=== PATIENT | female | born 1930 | race Caucasian/White ===

== ENCOUNTER 2017-03-04 11:25 | Emergency (ER) | payer MEDICARE ==
[~2017-03-04] VITALS: Ht 154.9 cm; Wt 78.9 kg
[~2017-03-04 11:25] MED LIST: ATOR10TA PO; COZA50TA PO; FURO20TA PO; LEVO50TA51 PO; LORA1TAB PO; METR0.7533 TOP; NOVOLOGSS SQ; POTA-243 PO; PROM2SUP RECTAL; PROT40TA PO; TIOT18I INH
[2017-03-04 11:30] VITALS: BP 194/77; PULSE 82; RESP 18; TEMP 98.5; O2SAT 96
[2017-03-04] MEDS ORDERED: LORA1TAB12 PO (11:51)
[2017-03-04] MEDS ORDERED: FURO40TA PO (11:51)
[2017-03-04] MEDS ORDERED: LOSA50TA PO (11:51)
[2017-03-04] MEDS ORDERED: POTA8CAP PO (11:51)
[2017-03-04] MEDS ORDERED: NOVOLOGP2 SQ (11:51)
[2017-03-04] MEDS ORDERED: LEVO75TA3 PO (11:51)
--- NOTE | 2017-03-04 11:52 | PD ---
HPI Chief Complaint: GI Complaint Time Seen by Provider: 11:37 Travel History International Travel<30 days: No Contact w/Intl Traveler<30days: No Traveled to known affect area: No History of Present Illness HPI The patient was seen and examined in the presence of the nurse. This patient complains of rectal bleeding. She has had intermittent and periodic bright red rectal bleeding for the last 1-2 months. She had GI follow-up and is scheduled for colonoscopy at the end of the month. Today she noticed some bright red blood. It was a small amount. She does have some degree of generalized weakness and reports history of anemia. Severity is moderate. No alleviating factors. No exacerbating factors. No vomiting or fever. She has chronic pain from arthritis and has a morphine pump. PFSH Past Medical History Arthritis: Yes Anxiety: Yes Cancer: Yes (SKIN CANCER BOTH EYES, LEFT KIDNEY) Cardiovascular Problems: Yes High Cholesterol: Yes Congestive Heart Failure: No Diabetes: Yes Diminished Hearing: No Gastrointestinal Disorders: Yes (REFLUX) GERD: Yes Glaucoma: No Genitourinary: Yes Hepatitis: No Hiatal Hernia: No Hypertension: Yes Immune Disorder: No Musculoskeletal: Yes (NECK, ARTHRITIS) Neurologic: Yes Psychiatric: Yes (MOD ANXIETY) Respiratory: Yes (SOB WITH EXERTION, COUGH (CLEARS THROAT)) Pneumonia: Yes Thyroid Disease: Yes (HYPO) ?: Not Menopausal: Yes Past Surgical History Abdominal Surgery: Yes (APPENDECTOMY, PAIN PUMP PLACEMENT 2006) Appendectomy: Yes Body Medical Devices: PAIN PUMP, TITANIUM IN NECK Eye Surgery: Yes (BILAT CATARACT SX) Gynecologic Surgery: Yes (HYSTERECTOMY) Hysterectomy: Yes Pacemaker: No Social History Alcohol Use: No Tobacco Use: No (QUIT SEP 16 1988) Substance Use: No Allergies-Medications (Allergen,Severity, Reaction): Coded Allergies: morphine (Verified Adverse Reaction, Mild, NAUSEA/VOMITING, 03/04/17) aspirin (Verified Adverse Reaction, Unknown, NV, 03/04/17) cephalexin (Verified Adverse Reaction, Unknown, NV, 03/04/17) ibuprofen (Verified Adverse Reaction, Unknown, NV, 03/04/17) Uncoded Allergies: OMNICEF (Allergy, Intermediate, DIARRHEA, 05/23/08) Reported Meds & Prescriptions Reported Meds & Active Scripts Active Reported Potassium Chloride ER (Potassium Chloride) 8 Meq Cap 8 Meq PO BID Losartan (Losartan Potassium) 50 Mg Tab 50 Mg PO DAILY Lorazepam 1 Mg Tab 1 Mg PO BID PRN Levothyroxine (Levothyroxine Sodium) 75 Mcg Tab 75 Mcg PO DAILY Novolog Inj (Insulin Aspart) 1,000 Unit/10 Ml Vial 0 SQ DIRECTED Sliding Scale as directed. Furosemide 40 Mg Tab 40 Mg PO DAILY Review of Systems General / Constitutional: No: Fever Eyes: No: Visual changes HENT: No: Headaches Cardiovascular: No: Chest Pain or Discomfort Respiratory: No: Shortness of Breath Gastrointestinal: Positive: Hematochezia Genitourinary: No: Dysuria Musculoskeletal: Positive: Pain Skin: No Rash Neurologic: No: Weakness Psychiatric: No: Depression Endocrine: No: Polydipsia Hematologic/Lymphatic: No: Easy Bruising Physical Exam Narrative GENERAL: Well-nourished, well-developed patient in no apparent distress. SKIN: Focused skin assessment reveals no rash and nodules. Skin is Warm and dry. HEAD: Atraumatic. Normocephalic. EYES: Pupils equal and round. No scleral icterus. No injection or drainage. ENT: No nasal bleeding or discharge. Mucous membranes pink and moist. NECK: Trachea midline. No JVD. CARDIOVASCULAR: Regular rate and rhythm. No murmur appreciated. RESPIRATORY: No accessory muscle use. Clear to auscultation. Breath sounds equal bilaterally. GASTROINTESTINAL: Abdomen soft, non-tender, nondistended. Hepatic and splenic margins not palpable. MUSCULOSKELETAL: No obvious deformities. No clubbing. No cyanosis. No edema. NEUROLOGICAL: Awake and alert. No obvious cranial nerve deficits. Motor grossly within normal limits. Normal speech. PSYCHIATRIC: Appropriate mood and affect; insight and judgment normal. Rectal: Some heaped up tissue at the anus but no obvious external hemorrhoid or fissure Data Data Last Documented VS Vital Signs Date Time Temp Pulse Resp B/P (MAP) Pulse Ox O2 Delivery O2 Flow Rate FiO2 03/04/17 12:45 98.1 61 18 168/59 (95) 97 Room Air Orders Orders Basic Metabolic Panel (Bmp) (03/04/17 11:47) Complete Blood Count With Diff (03/04/17 11:47) Prothrombin Time / Inr (Pt) (03/04/17 11:47) Act Partial Throm Time (Ptt) (03/04/17 11:47) Ecg Monitoring (03/04/17 11:47) Iv Access Insert/Monitor (03/04/17 11:47) Oximetry (03/04/17 11:47) Sodium Chloride 0.9% Flush (Ns Flush) (03/04/17 12:00) Labs Laboratory Tests Test 03/04/17 12:00 White Blood Count 5.2 TH/MM3 Red Blood Count 4.10 MIL/MM3 Hemoglobin 11.5 GM/DL Hematocrit 34.4 % Mean Corpuscular Volume 83.8 FL Mean Corpuscular Hemoglobin 28.1 PG Mean Corpuscular Hemoglobin Concent 33.5 % Red Cell Distribution Width 14.4 % Platelet Count 137 TH/MM3 Mean Platelet Volume 8.6 FL Neutrophils (%) (Auto) 72.9 % Lymphocytes (%) (Auto) 16.6 % Monocytes (%) (Auto) 6.1 % Eosinophils (%) (Auto) 2.9 % Basophils (%) (Auto) 1.5 % Neutrophils # (Auto) 3.7 TH/MM3 Lymphocytes # (Auto) 0.9 TH/MM3 Monocytes # (Auto) 0.3 TH/MM3 Eosinophils # (Auto) 0.2 TH/MM3 Basophils # (Auto) 0.1 TH/MM3 CBC Comment DIFF FINAL Differential Comment Prothrombin Time 11.0 SEC Prothromb Time International Ratio 1.0 RATIO Activated Partial Thromboplast Time 27.3 SEC Blood Urea Nitrogen 20 MG/DL Creatinine 1.10 MG/DL Random Glucose 266 MG/DL Calcium Level 8.9 MG/DL Sodium Level 132 MEQ/L Potassium Level 4.5 MEQ/L Chloride Level 99 MEQ/L Carbon Dioxide Level 25.9 MEQ/L Anion Gap 7 MEQ/L Estimat Glomerular Filtration Rate 47 ML/MIN [facility] Medical Decision Making Medical Screen Exam Complete: Yes Emergency Medical Condition: Yes Medical Record Reviewed: Yes Differential Diagnosis Diverticulosis, AV malformation, polyp Narrative Course I have reviewed the patient's electronic medical record. Her hemoglobin was 9.9 drawn 6 months ago IV placed CBC shows hemoglobin of 10.5, higher than prior Metabolic profile is noted, hyperglycemic Coagulation studies are normal Abdomen is soft and benign and nontender Patient should call her GI physician to report further bleeding but she stable for outpatient follow-up. Diagnosis Primary Impression: Rectal bleeding Additional Instructions: The patient was advised to follow up with their GI physician and return if they worsen. Med/Other Pt SpecificInfo: Other Disposition: 01 DISCHARGE HOME Condition: Stable Kocisko,Boris J. MD Mar 04, 2017 11:52
[2017-03-04] MEDS ORDERED: SODIUM CHLORIDE 0.9% FLUSH 10 ML FLUSH IVF PRN (12:00)
[2017-03-04 12:19] LABS: AUTOMATED NEUTROPHIL # 3.7 TH/MM3 (1.8-7.7); BASOPHIL # 0.1 TH/MM3 (0-0.2); BASOPHIL % 1.5 % (0.0-2.0); EOSINOPHIL # 0.2 TH/MM3 (0-0.4); EOSINOPHIL % 2.9 % (0.0-4.0); HEMATOCRIT 34.4 % (35.0-46.0); HEMO FLAGS DIFF FINAL; LYMPH % 16.6 % (9.0-44.0); LYMPHOCYTE # 0.9 TH/MM3 (1.0-4.8); MEAN CELL VOLUME 83.8 FL (80.0-100.0); MEAN CORPUSCULAR HEMOGLOBIN 28.1 PG (27.0-34.0); MEAN CORPUSCULAR HGB CONC 33.5 % (32.0-36.0); MONO % 6.1 % (0.0-8.0); NEUT % 72.9 % (16.0-70.0); PLATELET COUNT 137 TH/MM3 (150-450); RED CELL DISTRIBUTION WIDTH 14.4 % (11.6-17.2); WHITE BLOOD COUNT 5.2 TH/MM3 (4.0-11.0)
[2017-03-04 12:29] LABS: POTASSIUM 4.5 MEQ/L (3.5-5.1)
[2017-03-04 12:32] LABS: BICARBONATE 25.9 MEQ/L (21.0-32.0)
[2017-03-04 12:33] LABS: APTT (PATIENT) 27.3 SEC (24.3-30.1)
[2017-03-04 12:45] VITALS: BP 168/59; PULSE 61; RESP 18; TEMP 98.1; O2SAT 97
== END 2017-03-04 13:22 | disposition home or self-care (01) ==
LOC: PHED 11:25
DX: K62.5 Hemorrhage of anus and rectum (principal); R53.1 Weakness; E11.9 Type 2 diabetes mellitus without complications; I10 Essential (primary) hypertension; E07.9 Disorder of thyroid, unspecified; E78.00 Pure hypercholesterolemia, unspecified; Z79.4 Long term (current) use of insulin; Z86.2 Personal history of diseases of the blood and blood-forming organs and certain disorders involving the immune mechanism; Z87.39 Personal history of other diseases of the musculoskeletal system and connective tissue; Z86.59 Personal history of other mental and behavioral disorders; Z86.79 Personal history of other diseases of the circulatory system; Z87.19 Personal history of other diseases of the digestive system; Z87.448 Personal history of other diseases of urinary system; Z86.69 Personal history of other diseases of the nervous system and sense organs; Z87.09 Personal history of other diseases of the respiratory system
CPT/HCPCS: 80048; 85025; 85610; 85730; 99283

== ENCOUNTER 2017-06-11 07:51 | Observation (INO) | payer MEDICARE ==
[~2017-06-11] VITALS: Ht 154.9 cm; Wt 81.1 kg
[~2017-06-11 07:51] MED LIST changes: -ATOR10TA PO; -COZA50TA PO; -FURO20TA PO; +FURO40TA PO; -LEVO50TA51 PO; +LEVO75TA3 PO; -LORA1TAB PO; +LORA1TAB12 PO; +LOSA50TA PO; -METR0.7533 TOP; +NOVOLOGP2 SQ; -NOVOLOGSS SQ; -POTA-243 PO; +POTA8CAP PO; -PROM2SUP RECTAL; -PROT40TA PO; -TIOT18I INH
[2017-06-11 08:13] VITALS: BP 187/70; PULSE 86; RESP 16; TEMP 98.8; O2SAT 96
--- NOTE | 2017-06-11 08:14 | PD ---
HPI Chief Complaint: cough, generalized weakness Time Seen by Provider: 08:10 Travel History International Travel<30 days: No Contact w/Intl Traveler<30days: No Traveled to known affect area: No History of Present Illness HPI 87-year-old female with history of diabetes, chronic pain with a pain pump, anemia, here for evaluation of possible pneumonia, cough, generalized weakness. Symptoms have been going on for the last 4 days. Cough is productive, however the patient has been swallowing her sputum and does not know what it looks like. She has been having chills and subjective fevers. She also has an intermittent tightness in her chest which is substernal. She denies history of significant cardiac disease. No history of DVT or PE. PFSH Past Medical History Arthritis: Yes Anxiety: Yes Cancer: Yes (SKIN CANCER BOTH EYES, LEFT KIDNEY) Cardiovascular Problems: Yes High Cholesterol: Yes Congestive Heart Failure: No Diabetes: Yes Diminished Hearing: No Gastrointestinal Disorders: Yes (REFLUX) GERD: Yes Glaucoma: No Genitourinary: Yes Headaches: Yes (OCC) Hepatitis: No Hiatal Hernia: No Hypertension: Yes Immune Disorder: No Implanted Vascular Access Dvce: Yes Musculoskeletal: Yes (NECK, ARTHRITIS) Neurologic: Yes Psychiatric: Yes (MOD ANXIETY) Respiratory: Yes (SOB WITH EXERTION, COUGH (CLEARS THROAT)) Pneumonia: Yes Thyroid Disease: Yes (HYPO) Menopausal: Yes Past Surgical History Abdominal Surgery: Yes (APPENDECTOMY, PAIN PUMP PLACEMENT 2006) Appendectomy: Yes Body Medical Devices: PAIN PUMP, TITANIUM IN NECK Eye Surgery: Yes (BILAT CATARACT SX) Gynecologic Surgery: Yes (HYSTERECTOMY) Hysterectomy: Yes Pacemaker: No Other Surgery: Yes Social History Alcohol Use: No Tobacco Use: No (QUIT SEP 16 1988) Substance Use: No Allergies-Medications (Allergen,Severity, Reaction): Coded Allergies: morphine (Verified Adverse Reaction, Mild, NAUSEA/VOMITING, 06/11/17) aspirin (Verified Adverse Reaction, Unknown, NV, 06/11/17) cephalexin (Verified Adverse Reaction, Unknown, NV, 06/11/17) ibuprofen (Verified Adverse Reaction, Unknown, NV, 06/11/17) Uncoded Allergies: OMNICEF (Allergy, Intermediate, DIARRHEA, 05/23/08) Reported Meds & Prescriptions Reported Meds & Active Scripts Active Reported Tresiba Flextouch Pen Inj (Insulin Degludec Inj) 300 unit/3 ML Pen 1 Units SQ TID Stool Softener (Docusate Sodium) 100 Mg Cap Ferosul (Ferrous Sulfate) 325 Mg (65 Mg Iron) Tablet Potassium Chloride ER (Potassium Chloride) 8 Meq Cap 8 Meq PO BID Losartan (Losartan Potassium) 50 Mg Tab 50 Mg PO DAILY Lorazepam 1 Mg Tab 1 Mg PO QID PRN Levothyroxine (Levothyroxine Sodium) 75 Mcg Tab 50 Mcg PO DAILY Novolog Inj (Insulin Aspart) 1,000 Unit/10 Ml Vial 0 SQ DIRECTED Sliding Scale as directed. Furosemide 40 Mg Tab 40 Mg PO DAILY Review of Systems Except as stated in HPI: all other systems reviewed are Neg Physical Exam Narrative GENERAL: Well-developed, well-nourished, comfortable, no apparent distress. SKIN: Focused skin assessment warm/dry. HEAD: Atraumatic. Normocephalic. EYES: Pupils equal and round. No scleral icterus. No injection or drainage. ENT: Mucous membranes pink and moist. NECK: Trachea midline. No JVD. CARDIOVASCULAR: Regular rate and rhythm. Holosystolic murmur. RESPIRATORY: No accessory muscle use. Clear to auscultation. Breath sounds equal bilaterally. GASTROINTESTINAL: Abdomen soft, non-tender, nondistended. MUSCULOSKELETAL: No obvious deformities. No clubbing. No cyanosis. Moderate bilateral lower chin edema from foot to knee. NEUROLOGICAL: Awake and alert. No obvious cranial nerve deficits. Motor grossly within normal limits. Normal speech. PSYCHIATRIC: Appropriate mood and affect; insight and judgment normal. Data Data Last Documented VS Vital Signs Date Time Temp Pulse Resp B/P (MAP) Pulse Ox O2 Delivery O2 Flow Rate FiO2 06/11/17 08:15 96 Room Air 06/11/17 08:13 98.8 86 16 187/70 (109) Orders Orders Complete Blood Count With Diff (06/11/17 08:10) Comprehensive Metabolic Panel (06/11/17 08:10) B-Type Natriuretic Peptide (06/11/17 08:10) Act Partial Throm Time (Ptt) (06/11/17 08:10) Prothrombin Time / Inr (Pt) (06/11/17 08:10) Ckmb (Isoenzyme) Profile (06/11/17 08:10) Troponin I (06/11/17 08:10) Urinalysis - C+S If Indicated (06/11/17 08:10) Influenzae A/B Antigen (06/11/17 08:10) Blood Culture (06/11/17 08:10) Iv Access Insert/Monitor (06/11/17 08:10) Electrocardiogram (06/11/17 08:10) Ecg Monitoring (06/11/17 08:10) Oximetry (06/11/17 08:10) Chest, Single Ap (06/11/17 08:10) Sodium Chloride 0.9% Flush (Ns Flush) (06/11/17 08:15) Admit Order (Ed Use Only) (06/11/17 09:27) Labs Laboratory Tests Test 06/11/17 08:38 White Blood Count 7.3 TH/MM3 Red Blood Count 3.39 MIL/MM3 Hemoglobin 8.5 GM/DL Hematocrit 27.9 % Mean Corpuscular Volume 82.2 FL Mean Corpuscular Hemoglobin 25.1 PG Mean Corpuscular Hemoglobin Concent 30.5 % Red Cell Distribution Width 16.5 % Platelet Count 172 TH/MM3 Mean Platelet Volume 8.1 FL Neutrophils (%) (Auto) 70.2 % Lymphocytes (%) (Auto) 15.9 % Monocytes (%) (Auto) 8.4 % Eosinophils (%) (Auto) 4.4 % Basophils (%) (Auto) 1.1 % Neutrophils # (Auto) 5.1 TH/MM3 Lymphocytes # (Auto) 1.2 TH/MM3 Monocytes # (Auto) 0.6 TH/MM3 Eosinophils # (Auto) 0.3 TH/MM3 Basophils # (Auto) 0.1 TH/MM3 CBC Comment DIFF FINAL Differential Comment Prothrombin Time 10.3 SEC Prothromb Time International Ratio 1.0 RATIO Activated Partial Thromboplast Time 26.0 SEC Blood Urea Nitrogen 22 MG/DL Creatinine 1.10 MG/DL Random Glucose 277 MG/DL Total Protein 7.1 GM/DL Albumin 2.9 GM/DL Calcium Level 8.7 MG/DL Alkaline Phosphatase 117 U/L Aspartate Amino Transf (AST/SGOT) 20 U/L Alanine Aminotransferase (ALT/SGPT) 17 U/L Total Bilirubin 0.2 MG/DL Sodium Level 132 MEQ/L Potassium Level 4.2 MEQ/L Chloride Level 98 MEQ/L Carbon Dioxide Level 24.1 MEQ/L Anion Gap 10 MEQ/L Estimat Glomerular Filtration Rate 47 ML/MIN Total Creatine Kinase 65 U/L Troponin I LESS THAN 0.02 NG/ML B-Type Natriuretic Peptide 154 PG/ML MDM Medical Decision Making Medical Screen Exam Complete: Yes Emergency Medical Condition: Yes Medical Record Reviewed: Yes Interpretation(s) EKG: Sinus, rate 82, normal axis, normal intervals, no acute ischemic abnormality. Differential Diagnosis Pneumonia, influenza, anemia, metabolic abnormality, UTI, PE, ACS Narrative Course Initial vital signs show heart rate 86, blood pressure 187/70, pulse ox 96% on room air, oral temp of 98.8F. CBC is remarkable for hemoglobin 8.5, hematocrit 27.9. The patient has history of anemia, however this is worse than her baseline. CMP is remarkable for random glucose 277, otherwise unremarkable. Cardiac enzymes are negative. Chest x-ray: Chronic interstitial prominence. No acute abnormality or significant interval change. Stool is heme positive and black. The patient is on iron. She reports recent EGD and colonoscopy by Dr. Larios and was told that she has gastritis and gastric ulcer. Given her anemia with symptoms of weakness as well as heme positive stool, the patient will be admitted for serial H&H and further workup and evaluation. Case discussed with [facility] hospitalist Dr. Andrade who will admit the patient to his service. HemaPrompt Point of Care Internal Pos. & Neg. Controls: Passed Fecal Specimen Occult Blood: Positive Diagnosis Primary Impression: Anemia Qualified Codes: D64.9 - Anemia, unspecified Additional Impressions: Heme positive stool Generalized weakness Admitting Information Admitting Physician Requests: Andi Maxwell MD Jun 11, 2017 08:14
[2017-06-11 08:15] VITALS: O2SAT 96
[2017-06-11] MEDS ORDERED: SODIUM CHLORIDE 0.9% FLUSH 10 ML FLUSH IVF PRN (08:15)
[2017-06-11] MEDS ORDERED: DOCU1CAP66 (08:21)
[2017-06-11] MEDS ORDERED: FERR325T20 (08:21)
[2017-06-11] MEDS ORDERED: INSU1INJ14 SQ (08:21)
[2017-06-11 08:53] LABS: AUTOMATED NEUTROPHIL # 5.1 TH/MM3 (1.8-7.7); BASOPHIL # 0.1 TH/MM3 (0-0.2); BASOPHIL % 1.1 % (0.0-2.0); EOSINOPHIL # 0.3 TH/MM3 (0-0.4); EOSINOPHIL % 4.4 % (0.0-4.0); HEMATOCRIT 27.9 % (35.0-46.0); HEMOGLOBIN 8.5 GM/DL (11.6-15.3); LYMPH % 15.9 % (9.0-44.0); LYMPHOCYTE # 1.2 TH/MM3 (1.0-4.8); MEAN CELL VOLUME 82.2 FL (80.0-100.0); MEAN CORPUSCULAR HEMOGLOBIN 25.1 PG (27.0-34.0); MEAN CORPUSCULAR HGB CONC 30.5 % (32.0-36.0); MEAN PLATELET VOLUME 8.1 FL (7.0-11.0); MONO % 8.4 % (0.0-8.0); MONOCYTE # 0.6 TH/MM3 (0-0.9); NEUT % 70.2 % (16.0-70.0); PLATELET COUNT 172 TH/MM3 (150-450); RED BLOOD COUNT 3.39 MIL/MM3 (4.00-5.30); RED CELL DISTRIBUTION WIDTH 16.5 % (11.6-17.2); WHITE BLOOD COUNT 7.3 TH/MM3 (4.0-11.0)
[2017-06-11 08:56] LABS: CHLORIDE 98 MEQ/L (98-107); SODIUM (NA) 132 MEQ/L (136-145)
[2017-06-11 08:59] LABS: ALBUMIN 2.9 GM/DL (3.4-5.0); BICARBONATE 24.1 MEQ/L (21.0-32.0); CALCIUM 8.7 MG/DL (8.5-10.1); GLUCOSE,RANDOM 277 MG/DL (74-106)
[2017-06-11 09:00] LABS: BLOOD UREA NITROGEN 22 MG/DL (7-18); PROTHROMBIN TIME - PATIENT 10.3 SEC (9.8-11.6)
[2017-06-11 09:02] LABS: ALT (GPT) 17 U/L (10-53)
[2017-06-11 09:03] LABS: AST (GOT) 20 U/L (15-37); GLOMERULAR FILTRATION RATE 47 ML/MIN (>89)
[2017-06-11 09:04] LABS: TOTAL BILIRUBIN ADULT 0.2 MG/DL (0.2-1.0); TOTAL PROTEIN 7.1 GM/DL (6.4-8.2)
[2017-06-11 09:05] LABS: ALKALINE PHOSPHATASE 117 U/L (45-117)
[2017-06-11 09:07] LABS: TROPONIN I LESS THAN 0.02 NG/ML (0.02-0.05)
--- NOTE | 2017-06-11 09:15 | RADRPT ---
EXAM DATE/TIME: 06/11/2017 08:39 [facility] COMPARISON: CHEST SINGLE AP, May 15, 2014, 9:16. INDICATIONS : Weakness and Short of Breath MEDICAL HISTORY : Diabetes mellitus type II. SURGICAL HISTORY : None. ENCOUNTER: Initial ACUITY: 1 day PAIN SCORE: 0/10 LOCATION: Bilateral chest FINDINGS: Stable mild diffuse interstitial prominence. No new focal pleural or apical opacities. Cardiomediasti nal contours are stable. Remainder of the exam is unchanged. CONCLUSION: 1. Chronic interstitial prominence. 2. No acute abnormality or significant interval change. Quinton Chen MD on June 11, 2017 at 9:10 Board Certified Radiologist. This report was verified electronically.
[2017-06-11] MEDS ORDERED: GLUCAGON 1 MG/ML VIAL OTHER PRN (09:45)
[2017-06-11] MEDS ORDERED: DEXTROSE 50% IN WATER 50 ML VIAL(D50) IV PUSH PRN (09:45)
[2017-06-11 09:56] LABS: BILIRUBIN, URINE NEG (NEG); BLOOD, URINE NEG (NEG); GLUCOSE,URINE 250 mg/dL (NEG); KETONE, URINE NEG (NEG); NITRITE,URINE NEG (NEG); URINE LEUKOCYTE ESTERASE NEG (NEG)
[2017-06-11 10:11] LABS: URINE COLOR STRAW (YELLW/STRAW)
[2017-06-11 10:12] LABS: SQUAMOUS EPITHELIAL CELL URINE 0-2 /hpf (0-5)
[2017-06-11] MEDS: PANTOPRAZOLE SODIUM 40 MG VIAL IV PUSH SCH (10:43)
[2017-06-11] MEDS: SODIUM CHLOR 0.9% 1000 ML INJ 1,000 ML IV SCH ×2 (10:43→23:21)
[2017-06-11 10:47] VITALS: BP 179/74; PULSE 79; RESP 16; O2SAT 96
--- NOTE | 2017-06-11 11:13 | EKG ---
Date Performed: 06/11/2017 Time Performed: 08:13:42 PTAGE: 87 years EKG: Sinus rhythm NORMAL ECG Since the prior tracing, there has been no significant change PREVIOUS TRACING DOCTOR: Wilberto López Interpretating Date/Time 06/11/2017 11:07:16
--- NOTE | 2017-06-11 11:49 | MH ---
cc: URIEL FLETCHER M.D. DATE OF ADMISSION: 06/11/2017 DATE OF ADMISSION 06/11/2017 ADMISSION DIAGNOSIS 1. Symptomatic anemia. 2. Heme positive stool. 3. Generalized weakness. 4. History of gastric ulcer and gastritis on upper endoscopy March 06, 2017. 5. COPD. 6. Hypertension. 7. Stage III chronic kidney disease. 8. Type 2 diabetes mellitus with neuropathy and nephropathy that is uncontrolled. 9. 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 10. Gastroesophageal reflux disease/hiatal hernia. 11. Hyperlipidemia. 12. Hypothyroidism. 13. Hypertension. 14. Obstructive sleep apnea. 15. Osteoporosis. 16. Osteoarthritis. 17. 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 18. History of colon polyps. 19. Diverticulosis. 20. Anxiety. 21. Atherosclerosis of the aorta. PERTINENT HISTORY A pleasant white female who states she has been just generally weaker over the last 4 days. She has not really had any documented fevers. She has just a slight cough and not more than usual for her. She has no runny nose, no chills or sweats that she can think of. She has had some dark stools but attributed that to being on iron. She has had no nausea or vomiting. No diarrhea or abdominal pain. No increased trouble with her breathing. She felt maybe a little bit of muscle tightness in her chest and states her chest has been a little sore occasionally, but she attributed that to being on physical therapy three times a week for the last month for a right shoulder problem. She has had no heart disease. She is a diabetic. She came to the ER where her hemoglobin was 8.5 and she was heme positive. She had her last hemoglobin done on 05/08/2017 and was 10.2 which has pretty much been her chronic anemia in that range for awhile. As mentioned she did have an endoscopy done on 03/06/2017 that showed esophagitis, severe gastritis and a gastric ulcer. She had a colonoscopy then that just showed multiple polyps and diverticulosis. She is not taking any medication for her stomach. She stopped pantoprazole. She does not remember the date she stopped it. She does not like omeprazole as it bothers her stomach. PAST MEDICAL HISTORY 1. Hypertension. 2. Hyperlipidemia; not on any medication. Her last LDL cholesterol was 146. 3. Type 2 diabetes mellitus with neuropathy and nephropathy. 4. Stage III chronic kidney disease. 5. Hypothyroidism. 6. Gastroesophageal reflux disease/hiatal hernia. 7. Diverticulosis. 8. History of colon polyps, on more than one occasion. 9. Osteoarthritis. 10. Obstructive sleep apnea on CPAP. 11. Questionable cirrhosis. She denies being a heavy drinker in the past. 12. 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 13. Osteoarthrosis/osteoarthritis. 14. Pneumonia in the past. 15. Gastric ulcer and gastritis as mentioned. 16. Skin cancer removed from her left lower lid. She denies any heart attack, CHF or stroke. PAST SURGICAL HISTORY 1. Cervical fusion. 2. Pain pump put in for chronic low back pain. 3. Bilateral cataract extraction and lens implants. 4. Bilateral iridectomy. 5. Basal cell carcinoma removed from her left lower eyelid. 6. Appendectomy. 7. Rhinoplasty and nasal surgery years ago. 8. DIONICIO and BSO. 9. Colonoscopy 05/19/2014 with three polyps removed from the descending colon and rectum and one polyp from the ascending colon. One of those was an adenomatous polyp. 10. Colonoscopy done 03/06/2017 with multiple polyps throughout the colon and mild diverticulosis. 11. EGD done on 02/28/2015 that showed some gastritis and she had dilation of a distal esophageal stricture. 12. EGD done on 03/06/2017 that showed severe gastritis, esophagitis and a gastric ulcer. 13. Left nephrectomy June 2013 for papillary renal cell carcinoma. ALLERGIES 1. ASPIRIN CAUSES NAUSEA AND VOMITING. 2. KEFLEX CAUSES NAUSEA AND VOMITING. 3. MORPHINE. 4. MOTRIN. 5. NSAIDS. 6. TRADJENTA. 7. OMNICEF. 8. SULFA. MEDICATIONS 1. Ferrous sulfate 325 mg, one a day. 2. Lasix 40 mg at home, but states she just takes a half of one a day. This is for chronic venous insufficiency. 3. K-Tab 8 mEq, one a day. 4. Levothyroxine 75 mcg daily. 5. Lorazepam 1 mg. States she generally only takes it twice a day for anxiety. 6. Losartan 50 mg, one a day for hypertension. 7. NovoLog FlexPen 100 units per milliliter, 8-10 units subcu before meals. 8. Tresiba FlexTouch 100 units per milliliter, 24 units at bedtime. In the past she has been on sucralfate and pantoprazole but not currently taking that. FAMILY HISTORY Her father at 84. He had emphysema and diabetes. Mother at 93 with CHF. SOCIAL HISTORY She is . She lives alone. She quit smoking in 1988. She did start smoking at age 14. She does not use alcohol and states she never was a heavy user of alcohol. She used to work in her 's business. REVIEW OF SYSTEMS GENERAL: No documented fever. She has generalized fatigue. HEENT: No runny nose. No sore throat. CARDIOVASCULAR: No orthopnea or PND. No typical angina symptoms. CARDIOVASCULAR: Just minimal cough. No increased cough. No wheezing or shortness of breath. GI: As mentioned. : No dysuria or hematuria. EXTREMITIES: She gets some slight swelling but is stable and reportedly has chronic venous insufficiency and uses furosemide for this. MUSCULOSKELETAL: Chronic low back pain and chronic arthritis. History of a shoulder problem with some right rotator cuff problems and limited motion of her right shoulder that she has been on therapy for. PSYCHIATRIC: Uses lorazepam for anxiety and is stable. NEUROLOGIC: She gets some tingling in her feet from her diabetes but otherwise stable. No headache. No confusion. PHYSICAL EXAMINATION GENERAL: A pleasant elderly white female in no distress. VITAL SIGNS: Blood pressure is anywhere from 179/74 to 187/70. O2 sat 96% on room air. Pulse 79. Respiratory rate 16. Temperature 98.8. HEENT: TMs are clear. Lens implant both eyes. Sclera non-icteric. Nose negative. Mouth without lesion. She has only two teeth on the bottom. NECK: Without bruit. No JVD. HEART: Regular rate and rhythm with a faint murmur in the aortic region. She has reportedly had aortic sclerosis on a 2-D echo in the past but no stenosis. LUNGS: Slightly distant but clear. ABDOMEN: Soft, nontender, no masses. RECTAL: Not done. EXTREMITIES: Just trace ankle edema. No calf tenderness. Slightly diminished pulses both feet. SKIN: No lesions. NEUROLOGIC: Oriented x3. Cranial nerves, motor and sensory intact. LABORATORY Hemoglobin 8.5 with normal MCV but slightly low MCHC and MCH. Platelets 172,000. White count 7.3. INR was 1.0. Urinalysis was negative other than glucose. BUN was 22, creatinine 1.1 with a GFR of 47. This is stable. Her GFR was 40 on 05/08/2017. Troponin less than 0.02. BNP was 154. Albumin 2.9, protein 7.1, sodium 132, potassium 4.2, chloride 98, CO2 24.1. IMAGING Chest x-ray showed some chronic interstitial prominence otherwise negative. ASSESSMENT As noted. PLAN 1. Will monitor her H&H and get a GI consult to see whether she needs an EGD to see if she has a problem with a bleeding ulcer in view of her ulcer noted on last EGD 03/06/2017. 2. Will have her use SCDs and MAKENZIE hose for DVT prophylaxis. 3. Will put her on pantoprazole IV for now. 4. Will continue her losartan for blood pressure. 5. Her H&H will be monitored; however, she does not seem to be in any distress at this time. 6. Will put her on a sliding scale for now with NovoLog coverage. MD FLORY Cruz/MARKY /10:58 AM /11:16 AM
[2017-06-11 12:00] VITALS: BP 141/63; PULSE 76; RESP 14; TEMP 98.7; O2SAT 99
[2017-06-11] MEDS ORDERED: LIDOCAINE HCL 1% PF 5 ML SYRINGE OTHER ONE (12:00)
[2017-06-11] MEDS ORDERED: PROPOFOL 200 MG/20 ML AMP IV ONE (12:00)
[2017-06-11] MEDS: INSULIN ASPART SUPPLEMENTAL SCALE SQ SCH ×3 (12:00→21:39)
[2017-06-11] MEDS: LEVOTHYROXINE SODIUM 75 MCG TAB PO SCH (13:29)
[2017-06-11] MEDS: LOSARTAN 50 MG TAB PO SCH (13:29)
[2017-06-11 14:15] LABS: HEMATOCRIT 27.9 % (35.0-46.0); HEMOGLOBIN 8.8 GM/DL (11.6-15.3)
[2017-06-11 18:00] VITALS: BP 160/65; PULSE 83; RESP 16; TEMP 98.1; O2SAT 96
[2017-06-11 20:00] VITALS: BP 138/63; PULSE 74; RESP 18; TEMP 97.3; O2SAT 98
--- NOTE | 2017-06-11 20:09 | MB ---
cc: DAMIÁN MONK M.D., DONALD G. M.D. DATE OF CONSULTATION 06/11/[address] Solomon Andrade REASON FOR CONSULTATION Symptomatic anemia with heme-positive stools. HISTORY OF THE PRESENT ILLNESS Mrs. Brandt is an 87-year-old lady who states she has been feeling weak and tired for a few days. She presented to the hospital. Admission hemoglobin was 8.5 which is 2 grams below her baseline. She says she has not really been seeing any blood but tiredness and fatigue has been her main complaint. She has had history of anemia and previously had colon polyps and gastric ulcer. She had an EGD colonoscopy done as an outpatient in February with Dr. Mueller, colon polyps were seen. She also had a gastric ulcer and gastritis. She was recommended a followup endoscopy in April but she states she did not do this. Currently she is not complaining of any active bleeding. PAST MEDICAL HISTORY 1. Hypertension. 2. Hyperlipidemia. 3. Hypothyroidism. 4. Kidney disease. 5. Reflux disease. 6. Diverticulosis. 7. Colon polyps. 8. Osteoarthritis. 9. Sleep apnea. 10. Questionable liver cirrhosis. 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 12. Gastric ulcer. 13. Pneumonia. 14. Skin cancer. PAST SURGICAL HISTORY 1. Cervical fusion. 2. Pain pump. 3. Bilateral cataracts eye surgery. 4. Basal cell surgery. 5. Appendectomy. 6. Rhinoplasty. 7. Abdominal hysterectomy. 8. Multiple EGD / colonoscopies in the past, last one in February 2017. ALLERGIES ASPIRIN, KEFLEX, MORPHINE, MOTRIN, NSAIDS, OMNICEF AND SULFA. MEDICATIONS ON ADMISSION 1. Ferrous sulfate. 2. Lasix. 3. Levothyroxine. 4. Lorazepam. 5. Losartan. 6. Insulin. FAMILY HISTORY Noncontributory. SOCIAL HISTORY Quit smoking in 1988. REVIEW OF SYSTEMS No abdominal pain. No bleeding at this time. PHYSICAL EXAMINATION GENERAL: Physical examination reveals a well-nourished lady in no apparent distress. VITAL SIGNS: Stable. HEAD AND NECK: Examination anicteric sclerae. CHEST: Bilateral air entry with rales. ABDOMEN: Soft, nontender. No hepatosplenomegaly. Bowel sounds are present. OPERATIONS ADVISOR: Exam is nonfocal. RECTAL: Exam deferred at this time. LABORATORY DATA Labs reveal hemoglobin of 8.8. INR is 1.0. Creatinine 1.10. IMPRESSION Symptomatic anemia with heme-positive stools. RECOMMENDATIONS EGD / colonoscopy discussed with the patient. She is not interested in a colonoscopy. We will proceed with the endoscopy tomorrow. Continue to monitor labs. Continue Protonix. Further recommendations to be made. Thank you for this referral. Damián Monk MD HZ/KK /5:05 PM /7:49 PM
[2017-06-11 20:34] LABS: HEMATOCRIT 24.4 % (35.0-46.0); HEMOGLOBIN 8.2 GM/DL (11.6-15.3)
[2017-06-11] MEDS: LORazepam 1 MG TAB PO PRN (23:21)
[2017-06-12] VITALS (13 sets, daily range): BP systolic 121–168; BP diastolic 59–74; PULSE 76–88; RESP 14–20; TEMP 97.4–99.6; O2SAT 91–96
[2017-06-12 05:45] LABS: AUTOMATED NEUTROPHIL # 3.3 TH/MM3 (1.8-7.7); BASOPHIL % 0.7 % (0.0-2.0); EOSINOPHIL # 0.4 TH/MM3 (0-0.4); EOSINOPHIL % 7.5 % (0.0-4.0); HEMOGLOBIN 7.9 GM/DL (11.6-15.3); LYMPH % 26.4 % (9.0-44.0); LYMPHOCYTE # 1.5 TH/MM3 (1.0-4.8); MEAN CELL VOLUME 81.7 FL (80.0-100.0); MEAN CORPUSCULAR HEMOGLOBIN 25.9 PG (27.0-34.0); MEAN CORPUSCULAR HGB CONC 31.7 % (32.0-36.0); MEAN PLATELET VOLUME 7.7 FL (7.0-11.0); MONO % 9.3 % (0.0-8.0); MONOCYTE # 0.5 TH/MM3 (0-0.9); NEUT % 56.1 % (16.0-70.0); PLATELET COUNT 182 TH/MM3 (150-450); RED BLOOD COUNT 3.06 MIL/MM3 (4.00-5.30); RED CELL DISTRIBUTION WIDTH 16.3 % (11.6-17.2); WHITE BLOOD COUNT 5.7 TH/MM3 (4.0-11.0)
[2017-06-12 05:58] LABS: CALCIUM 8.2 MG/DL (8.5-10.1)
[2017-06-12 05:59] LABS: BICARBONATE 29.4 MEQ/L (21.0-32.0)
[2017-06-12] MEDS ORDERED: FUROSEMIDE 20 MG/2 ML VIAL IV PUSH ONE (06:00)
[2017-06-12] MEDS ORDERED: SODIUM CHLOR 0.9% 250 ML INJ 250 ML IV ONE (06:00)
[2017-06-12 06:02] LABS: CREATININE 0.97 MG/DL (0.50-1.00)
[2017-06-12] MEDS: LEVOTHYROXINE SODIUM 75 MCG TAB PO SCH (06:02)
[2017-06-12] MEDS: INSULIN ASPART SUPPLEMENTAL SCALE SQ SCH ×4 (08:00→20:35)
[2017-06-12] MEDS: SODIUM CHLOR 0.9% 1000 ML INJ 1,000 ML IV SCH (09:33)
[2017-06-12] MEDS: LOSARTAN 50 MG TAB PO SCH (09:33)
[2017-06-12] MEDS: PANTOPRAZOLE SODIUM 40 MG VIAL IV PUSH SCH (09:33)
--- NOTE | 2017-06-12 13:15 | HHI.PR ---
Subjective Remarks No complaints. No shortness of breath. Objective Vitals Vital Signs Date Time Temp Pulse Resp B/P (MAP) Pulse Ox O2 Delivery O2 Flow Rate FiO2 06/12/17 11:44 99.1 86 14 136/59 (84) 95 06/12/17 08:00 98.5 78 16 142/65 (90) 91 06/12/17 04:00 98.7 76 20 150/67 (94) 94 06/12/17 00:00 98.3 82 20 168/61 (96) 96 06/11/17 20:00 97.3 74 18 138/63 (88) 98 06/11/17 18:00 98.1 83 16 160/65 (96) 96 Result Diagram: 06/12/17 0522 06/12/17 0522 Other Results Laboratory Tests Test 06/11/17 08:38 06/11/17 09:46 06/11/17 14:00 06/11/17 20:25 White Blood Count 7.3 TH/MM3 Red Blood Count 3.39 MIL/MM3 Hemoglobin 8.5 GM/DL 8.8 GM/DL 8.2 GM/DL Hematocrit 27.9 % 27.9 % 24.4 % Mean Corpuscular Volume 82.2 FL Mean Corpuscular Hemoglobin 25.1 PG Mean Corpuscular Hemoglobin Concent 30.5 % Red Cell Distribution Width 16.5 % Platelet Count 172 TH/MM3 Mean Platelet Volume 8.1 FL Neutrophils (%) (Auto) 70.2 % Lymphocytes (%) (Auto) 15.9 % Monocytes (%) (Auto) 8.4 % Eosinophils (%) (Auto) 4.4 % Basophils (%) (Auto) 1.1 % Neutrophils # (Auto) 5.1 TH/MM3 Lymphocytes # (Auto) 1.2 TH/MM3 Monocytes # (Auto) 0.6 TH/MM3 Eosinophils # (Auto) 0.3 TH/MM3 Basophils # (Auto) 0.1 TH/MM3 CBC Comment DIFF FINAL Differential Comment Prothrombin Time 10.3 SEC Prothromb Time International Ratio 1.0 RATIO Activated Partial Thromboplast Time 26.0 SEC Blood Urea Nitrogen 22 MG/DL Creatinine 1.10 MG/DL Random Glucose 277 MG/DL Total Protein 7.1 GM/DL Albumin 2.9 GM/DL Calcium Level 8.7 MG/DL Alkaline Phosphatase 117 U/L Aspartate Amino Transf (AST/SGOT) 20 U/L Alanine Aminotransferase (ALT/SGPT) 17 U/L Total Bilirubin 0.2 MG/DL Sodium Level 132 MEQ/L Potassium Level 4.2 MEQ/L Chloride Level 98 MEQ/L Carbon Dioxide Level 24.1 MEQ/L Anion Gap 10 MEQ/L Estimat Glomerular Filtration Rate 47 ML/MIN Total Creatine Kinase 65 U/L Troponin I LESS THAN 0.02 NG/ML B-Type Natriuretic Peptide 154 PG/ML Urine Collection Type VOIDED Urine Color STRAW Urine Turbidity CLEAR Urine pH 6.0 Urine Specific [place] 1.012 Urine Protein NEG mg/dL Urine Glucose (UA) 250 mg/dL Urine Ketones NEG mg/dL Urine Occult Blood NEG Urine Nitrite NEG Urine Bilirubin NEG Urine Leukocyte Esterase NEG Urine Squamous Epithelial Cells 0-2 /hpf Microscopic Urinalysis Comment CULT NOT INDICATED Test 06/12/17 05:22 White Blood Count 5.7 TH/MM3 Red Blood Count 3.06 MIL/MM3 Hemoglobin 7.9 GM/DL Hematocrit 25.0 % Mean Corpuscular Volume 81.7 FL Mean Corpuscular Hemoglobin 25.9 PG Mean Corpuscular Hemoglobin Concent 31.7 % Red Cell Distribution Width 16.3 % Platelet Count 182 TH/MM3 Mean Platelet Volume 7.7 FL Neutrophils (%) (Auto) 56.1 % Lymphocytes (%) (Auto) 26.4 % Monocytes (%) (Auto) 9.3 % Eosinophils (%) (Auto) 7.5 % Basophils (%) (Auto) 0.7 % Neutrophils # (Auto) 3.3 TH/MM3 Lymphocytes # (Auto) 1.5 TH/MM3 Monocytes # (Auto) 0.5 TH/MM3 Eosinophils # (Auto) 0.4 TH/MM3 Basophils # (Auto) 0.0 TH/MM3 CBC Comment DIFF FINAL Differential Comment Blood Urea Nitrogen 18 MG/DL Creatinine 0.97 MG/DL Random Glucose 180 MG/DL Calcium Level 8.2 MG/DL Sodium Level 136 MEQ/L Potassium Level 4.5 MEQ/L Chloride Level 103 MEQ/L Carbon Dioxide Level 29.4 MEQ/L Anion Gap 4 MEQ/L Estimat Glomerular Filtration Rate 54 ML/MIN Imaging Last Impressions Chest X-Ray 06/11/17 0810 Signed Impressions: Service Date/Time: Sunday, June 11, 2017 08:39 - CONCLUSION: 1. Chronic interstitial prominence. 2. No acute abnormality or significant interval change. Quinton Chen MD Objective Remarks Exam: Pleasant female in no distress HEENT: Pupils equal, no scleral icterus, mouth negative Heart: RRR with faint murmur Lungs: Clear Abdomen: Soft, nontender Extremities: trace ankle edema (stable Neuro: Alert, oriented A/P Assessment and Plan Assessment: --Symptomatic anemia --Heme positive stool --Generalized weakness --Hs of gastric ulcer and gastritis on EGD on 03-06-17. 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 Her likely source for her anemia is probably gastric in origin so and EGD is being done later today by gastroenterology. Patient declined a colonoscopy. Continue Pantoprazole. She is on a sliding scale for her diabetes control. She is on SCD's and Kal's for DVT prophylaxis. Solomon Andrade MD Jun 12, 2017 13:15
--- NOTE | 2017-06-12 16:10 | GIPROC ---
[facility] [address] [place] [address], [id number] EGD PROCEDURE REPORT EXAM DATE: 06/12/2017 PATIENT NAME: Karly Hickey MR #: [id number] BIRTHDATE: 1930 ATTENDING: Dee Monk MD ORDER #: [id number] [employer] [employer]: Jarrett Aaron and Barbara Lugo STATUS: inpatient INDICATIONS: The patient is a 87 yr old female here for an EGD due to iron deficiency anemia PROCEDURE PERFORMED: EGD w/ control of bleeding MEDICATIONS: None and Per Anesthesia. TOPICAL ANESTHETIC: CONSENT: The patient understands the risks and benefits of the procedure and understands that these risks include, but are not limited to: sedation, allergic reaction, infection, perforation and/or bleeding. Alternative means of evaluation and treatment include, among others: physical exam, x-rays, and/or surgical intervention. The patient elects to proceed with this endoscopic procedure. medical equipment was checked for proper function. Hand hygiene and appropriate measures for infection prevention was taken. After the risks, benefits and alternatives of the procedure were thoroughly explained, Informed consent was verified, confirmed and timeout was successfully executed by the treatment team. The patient was anesthetized with topical anesthesia and the Pentax EG-[id number] endoscope was introduced through the mouth and advanced to the second portion of the duodenum. Retroflexed views revealed no abnormalities The gastroscope was then slowly withdrawn and removed. ESOPHAGUS: There was a single small varix in the mid esophagus. The varices were not bleeding. Monopolar cautery with a 10Fr heater probe was applied to the site(s) for 5 secs using 20 arroyo power. Moderate pressure was applied to the cautery site with complete hemostasis achieved. STOMACH: A medium sized bleeding angiodysplastic lesion was found in the gastric antrum. DUODENUM: The duodenal mucosa appeared normal in the bulb and second portion of the duodenum. ADVERSE EVENTS: There were no complications. IMPRESSIONS: 1. Bleeding angiodysplastic lesion in the gastric antrum 2. Normal duodenal mucosa in the bulb and second portion of the duodenum 3. Retroflexed views revealed no abnormalities RECOMMENDATIONS: 1. Anti-reflux regimen 2. Continue PPI 3. Avoid NSAIDS PATIENT CONDITION: stable DISPOSITION: Inpatient REPEAT EXAM: Return 6 months EGD Dee Monk MD eSigned: Dee Monk MD 06/12/2017 4:10 PM cc: Solomon Andrade M.D. PATIENT NAME: Karly Hickey MR#: [id number]
[2017-06-12] MEDS: LORazepam 1 MG TAB PO PRN (22:33)
[2017-06-13] VITALS: BP 140/61; PULSE 77; RESP 16; TEMP 98; O2SAT 94
[2017-06-13 00:35] VITALS: BP 140/61; PULSE 77; RESP 16; TEMP 98; O2SAT 94
[2017-06-13] MEDS: SODIUM CHLOR 0.9% 1000 ML INJ 1,000 ML IV SCH (00:46)
[2017-06-13 04:00] VITALS: BP 161/88; PULSE 76; RESP 16; TEMP 96; O2SAT 98
[2017-06-13 06:24] LABS: AUTOMATED NEUTROPHIL # 3.6 TH/MM3 (1.8-7.7); BASOPHIL % 0.4 % (0.0-2.0); EOSINOPHIL # 0.4 TH/MM3 (0-0.4); EOSINOPHIL % 6.6 % (0.0-4.0); HEMATOCRIT 29.4 % (35.0-46.0); HEMOGLOBIN 9.9 GM/DL (11.6-15.3); LYMPH % 25.5 % (9.0-44.0); LYMPHOCYTE # 1.6 TH/MM3 (1.0-4.8); MEAN CELL VOLUME 83.1 FL (80.0-100.0); MEAN CORPUSCULAR HEMOGLOBIN 27.9 PG (27.0-34.0); MEAN CORPUSCULAR HGB CONC 33.6 % (32.0-36.0); MEAN PLATELET VOLUME 7.8 FL (7.0-11.0); MONO % 9.6 % (0.0-8.0); MONOCYTE # 0.6 TH/MM3 (0-0.9); NEUT % 57.9 % (16.0-70.0); PLATELET COUNT 163 TH/MM3 (150-450); RED BLOOD COUNT 3.54 MIL/MM3 (4.00-5.30); RED CELL DISTRIBUTION WIDTH 16.6 % (11.6-17.2); WHITE BLOOD COUNT 6.2 TH/MM3 (4.0-11.0)
[2017-06-13] MEDS: LEVOTHYROXINE SODIUM 75 MCG TAB PO SCH (06:31)
[2017-06-13 06:39] LABS: CALCIUM 8.5 MG/DL (8.5-10.1)
[2017-06-13 06:40] LABS: BICARBONATE 25.9 MEQ/L (21.0-32.0)
--- NOTE | 2017-06-13 07:14 | HHI.PR ---
Subjective Remarks She has received two units of packed red blood cells. She states she feels much stronger now. No abdominal pain. No shortness of breath. Objective Vitals Vital Signs Date Time Temp Pulse Resp B/P (MAP) Pulse Ox O2 Delivery O2 Flow Rate FiO2 06/13/17 04:00 96.0 76 16 161/88 (112) 98 06/13/17 00:35 98.0 77 16 140/61 94 06/13/17 00:00 98.0 77 16 140/61 (87) 94 06/12/17 22:39 98.9 76 16 96 06/12/17 22:16 98.6 76 16 153/68 96 06/12/17 22:10 97.4 76 16 153/68 (96) 96 06/12/17 20:10 98.6 82 16 144/60 (88) 92 06/12/17 20:08 99.0 80 16 147/66 92 06/12/17 20:00 97.4 81 16 150/69 (96) 94 06/12/17 19:45 97.9 88 16 156/59 94 06/12/17 17:40 99.0 84 16 145/65 (91) 93 06/12/17 16:40 90 16 130/52 (78) 100 06/12/17 16:30 90 16 131/50 (77) 99 06/12/17 16:15 98.9 92 18 114/45 (68) 95 06/12/17 15:08 99.6 84 16 121/74 (90) 94 06/12/17 11:44 99.1 86 14 136/59 (84) 95 06/12/17 08:00 98.5 78 16 142/65 (90) 91 Result Diagram: 06/13/17 0520 06/13/17 0523 Other Results Laboratory Tests Test 06/11/17 08:38 06/11/17 09:46 06/11/17 14:00 06/11/17 20:25 White Blood Count 7.3 TH/MM3 Red Blood Count 3.39 MIL/MM3 Hemoglobin 8.5 GM/DL 8.8 GM/DL 8.2 GM/DL Hematocrit 27.9 % 27.9 % 24.4 % Mean Corpuscular Volume 82.2 FL Mean Corpuscular Hemoglobin 25.1 PG Mean Corpuscular Hemoglobin Concent 30.5 % Red Cell Distribution Width 16.5 % Platelet Count 172 TH/MM3 Mean Platelet Volume 8.1 FL Neutrophils (%) (Auto) 70.2 % Lymphocytes (%) (Auto) 15.9 % Monocytes (%) (Auto) 8.4 % Eosinophils (%) (Auto) 4.4 % Basophils (%) (Auto) 1.1 % Neutrophils # (Auto) 5.1 TH/MM3 Lymphocytes # (Auto) 1.2 TH/MM3 Monocytes # (Auto) 0.6 TH/MM3 Eosinophils # (Auto) 0.3 TH/MM3 Basophils # (Auto) 0.1 TH/MM3 CBC Comment DIFF FINAL Differential Comment Prothrombin Time 10.3 SEC Prothromb Time International Ratio 1.0 RATIO Activated Partial Thromboplast Time 26.0 SEC Blood Urea Nitrogen 22 MG/DL Creatinine 1.10 MG/DL Random Glucose 277 MG/DL Total Protein 7.1 GM/DL Albumin 2.9 GM/DL Calcium Level 8.7 MG/DL Alkaline Phosphatase 117 U/L Aspartate Amino Transf (AST/SGOT) 20 U/L Alanine Aminotransferase (ALT/SGPT) 17 U/L Total Bilirubin 0.2 MG/DL Sodium Level 132 MEQ/L Potassium Level 4.2 MEQ/L Chloride Level 98 MEQ/L Carbon Dioxide Level 24.1 MEQ/L Anion Gap 10 MEQ/L Estimat Glomerular Filtration Rate 47 ML/MIN Total Creatine Kinase 65 U/L Troponin I LESS THAN 0.02 NG/ML B-Type Natriuretic Peptide 154 PG/ML Urine Collection Type VOIDED Urine Color STRAW Urine Turbidity CLEAR Urine pH 6.0 Urine Specific [place] 1.012 Urine Protein NEG mg/dL Urine Glucose (UA) 250 mg/dL Urine Ketones NEG mg/dL Urine Occult Blood NEG Urine Nitrite NEG Urine Bilirubin NEG Urine Leukocyte Esterase NEG Urine Squamous Epithelial Cells 0-2 /hpf Microscopic Urinalysis Comment CULT NOT INDICATED Test 06/12/17 05:22 06/13/17 05:20 06/13/17 05:23 White Blood Count 5.7 TH/MM3 6.2 TH/MM3 Red Blood Count 3.06 MIL/MM3 3.54 MIL/MM3 Hemoglobin 7.9 GM/DL 9.9 GM/DL Hematocrit 25.0 % 29.4 % Mean Corpuscular Volume 81.7 FL 83.1 FL Mean Corpuscular Hemoglobin 25.9 PG 27.9 PG Mean Corpuscular Hemoglobin Concent 31.7 % 33.6 % Red Cell Distribution Width 16.3 % 16.6 % Platelet Count 182 TH/MM3 163 TH/MM3 Mean Platelet Volume 7.7 FL 7.8 FL Neutrophils (%) (Auto) 56.1 % 57.9 % Lymphocytes (%) (Auto) 26.4 % 25.5 % Monocytes (%) (Auto) 9.3 % 9.6 % Eosinophils (%) (Auto) 7.5 % 6.6 % Basophils (%) (Auto) 0.7 % 0.4 % Neutrophils # (Auto) 3.3 TH/MM3 3.6 TH/MM3 Lymphocytes # (Auto) 1.5 TH/MM3 1.6 TH/MM3 Monocytes # (Auto) 0.5 TH/MM3 0.6 TH/MM3 Eosinophils # (Auto) 0.4 TH/MM3 0.4 TH/MM3 Basophils # (Auto) 0.0 TH/MM3 0.0 TH/MM3 CBC Comment DIFF FINAL DIFF FINAL Differential Comment Blood Urea Nitrogen 18 MG/DL 18 MG/DL Creatinine 0.97 MG/DL 1.00 MG/DL Random Glucose 180 MG/DL 232 MG/DL Calcium Level 8.2 MG/DL 8.5 MG/DL Sodium Level 136 MEQ/L 133 MEQ/L Potassium Level 4.5 MEQ/L 4.4 MEQ/L Chloride Level 103 MEQ/L 100 MEQ/L Carbon Dioxide Level 29.4 MEQ/L 25.9 MEQ/L Anion Gap 4 MEQ/L 7 MEQ/L Estimat Glomerular Filtration Rate 54 ML/MIN 52 ML/MIN Imaging Last Impressions Chest X-Ray 06/11/17 0810 Signed Impressions: Service Date/Time: Sunday, June 11, 2017 08:39 - CONCLUSION: 1. Chronic interstitial prominence. 2. No acute abnormality or significant interval change. Quinton Chen MD Objective Remarks Exam: Pleasant female in no distress HEENT: Pupils equal, no scleral icterus, mouth negative Heart: RRR with faint murmur Lungs: Clear Abdomen: Soft, nontender Extremities: trace ankle edema (stable Neuro: Alert, oriented Procedures EGD done on 06-12-17 showed a single esophageal varices. A medium sized bleeding angiodysplastic lesion was found in the antrum and was cauterized. GI recommended continuing Pantoprazole. A/P Assessment and Plan Assessment: --Anemia secondary to upper GI bleeding --Heme positive stool secondary to a bleeding medium sized angiodysplastic lesion of the antrum. EGD also showed a single nonbleeding esophageal varices. --Generalized weakness --Hs of gastric ulcer and gastritis on EGD on 03-06-17. 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 She is feeling better after the blood transfusion and her vital signs are stable. I will discharge her home on Pantoprazole 40mg daily. I did increase her Losartan 50mg to one twice a day. She will resume her home medications. I will have her take Ferrous sulfate 325mg twice a day. She will followup with Dr Loredo in one week and do a followup CBC, BMP on Sunday. Solomon Andrade MD Jun 13, 2017 07:14
[2017-06-13] MEDS ORDERED: COZA50TA PO (07:30)
[2017-06-13] MEDS ORDERED: INSU1INJ14 SQ (07:30)
[2017-06-13] MEDS ORDERED: LEVO.075 PO (07:30)
[2017-06-13] MEDS ORDERED: PANT40TA3 PO (07:30)
[2017-06-13] MEDS ORDERED: FERR325T18 PO (07:36)
[2017-06-13] MEDS: INSULIN ASPART SUPPLEMENTAL SCALE SQ SCH (07:56)
[2017-06-13 08:00] VITALS: BP 164/74; PULSE 80; RESP 19; TEMP 96.9; O2SAT 94
[2017-06-13] MEDS ORDERED: LOSARTAN 50 MG TAB PO SCH (09:00)
== END 2017-06-13 11:52 | disposition home or self-care (01) ==
LOC: PHED 07:51 → PHEDA 09:27 → PH3A 11:40
PROVIDERS: ADMIT Family Medicine; ATTEND Family Medicine
DX: D50.0 Iron deficiency anemia secondary to blood loss (chronic) (principal); R06.02 Shortness of breath; I12.9 Hypertensive chronic kidney disease with stage 1 through stage 4 chronic kidney disease, or unspecified chronic kidney disease; E11.22 Type 2 diabetes mellitus with diabetic chronic kidney disease; N18.3 Chronic kidney disease, stage 3 (moderate); J44.9 Chronic obstructive pulmonary disease, unspecified; E03.9 Hypothyroidism, unspecified; E78.00 Pure hypercholesterolemia, unspecified; K74.60 Unspecified cirrhosis of liver; K21.0 Gastro-esophageal reflux disease with esophagitis; G47.33 Obstructive sleep apnea (adult) (pediatric); I70.0 Atherosclerosis of aorta; I85.00 Esophageal varices without bleeding; K57.90 Diverticulosis of intestine, part unspecified, without perforation or abscess without bleeding; M54.5 Low back pain; G89.29 Other chronic pain; M81.0 Age-related osteoporosis without current pathological fracture; M19.90 Unspecified osteoarthritis, unspecified site; Z85.528 Personal history of other malignant neoplasm of kidney; Z86.010 Personal history of colon polyps; Z90.5 Acquired absence of kidney; F41.9 Anxiety disorder, unspecified; Z79.899 Other long term (current) drug therapy; Z87.891 Personal history of nicotine dependence; Z85.828 Personal history of other malignant neoplasm of skin; Z88.5 Allergy status to narcotic agent; Z88.2 Allergy status to sulfonamides; Z88.8 Allergy status to other drugs, medicaments and biological substances; Z88.6 Allergy status to analgesic agent
CPT/HCPCS: 00731; 36430; 43255; 71045; 80048; 80053; 81001; 82550; 82948; 83880; 84484; 85014; 85018; 85025; 85610; 85730; 86850; 86900; 86901; 86920; 87040; 87804; 93005; 96361; 96372; 96374; 96375; 99285; C9113; G0378; J1815; J1940; J7030; J7050; P9016

== ENCOUNTER 2017-10-23 16:12 | Inpatient (IN) | END 2017-10-27 13:11 | disposition home or self-care (01) | LOC: PH3 10-25 08:42 | PROVIDERS: ADMIT Legal Medicine; ATTEND Legal Medicine ==

== ENCOUNTER 2017-12-26 10:28 | Inpatient (IN) ==
[2017-12-26] MEDS ORDERED: Tetanus/Diphtheria Toxoid Adult Vaccine Inj 0.5 ML Vial IM ONE (11:16)
[2017-12-26] MEDS ORDERED: Lidocaine 1%/Epinephrine 1:100,000 Inj 20 ML Vial INFILTRATN ONE (11:16)
--- NOTE | 2017-12-26 11:21 | ED ---
HPI General Chief Complaint: Fall Stated Complaint: Fall Time Seen by Provider: 12/26/17 11:05 Source: patient and family Mode of arrival: EMS Limitations: no limitations History of Present Illness HPI Narrative: Patient is an 87-year-old female presenting to the emergency department for evaluation of a laceration to her right lower leg after she sustained a mechanical fall just prior to arrival. Patient was walking when she tripped landing on her right knee and lower leg. She states that she has been dizzy for months, she reports chronic weakness. Family is at bedside and corroborates this. Patient denies any chest pain or shortness of breath prior to falling. She has not eaten breakfast because she was n.p.o. for an ultrasound of her liver. She reports pain in her leg is a 2 out of 10, aching. Pain is constant. Pain is worse with movement. Pain is somewhat alleviated with rest. Patient's tetanus vaccine is not up-to-date. There was no head injury or loss of consciousness. Symptom onset was sudden, symptoms are moderate in nature. Bleeding is controlled. Past medical history is significant for COPD, hypertension, hyperlipidemia, hypothyroidism, GERD, aortic stenosis, mitral valve stenosis, anemia, type 2 diabetes. MD complaint: fall Onset (ago): minute(s) Fall from: standing Fall witnessed: yes, by family Place fall occurred: street Loss of consciousness: none Prolonged down time: no Symptoms prior to fall: dizziness Context: tripped/slipped Location of injury: other Location of injury - extremities: Right: lower leg Severity: moderate Severity scale (1-10): 2 Quality: aching Related Data Home Medications Medication Instructions Recorded Confirmed docusate sodium [Colace] 100 mg PO DAILY 11/06/17 12/26/17 ferrous sulfate [FeroSul] 325 mg PO BID 11/06/17 12/26/17 furosemide [Lasix] 40 mg PO DAILY 11/06/17 12/26/17 lansoprazole 30 mg PO BID 11/06/17 12/26/17 lorazepam 1 mg PO QID PRN 11/06/17 12/26/17 nadolol 20 mg PO DAILY 11/06/17 12/26/17 insulin aspart U-100 [Novolog 8 - 10 unit SUB-Q TIDAC 12/26/17 12/26/17 Flexpen U-100 Insulin] insulin degludec [Tresiba 24 unit SUB-Q DAILY 12/26/17 12/26/17 FlexTouch U-100] levothyroxine 100 mcg PO DAILY 12/26/17 12/26/17 potassium chloride [K-Tab] 8 meq PO DAILY 12/26/17 12/26/17 Allergies Allergy/AdvReac Type Severity Reaction Status Date / Time morphine AdvReac Mild NAUSEA/VOMI Verified 10/23/17 13:22 TING aspirin AdvReac Unknown NV Verified 10/23/17 13:22 cephalexin AdvReac Unknown NV Verified 10/23/17 13:22 ibuprofen AdvReac Unknown NV Verified 10/23/17 13:22 OMNICEF Allergy Intermediate DIARRHEA Uncoded 05/23/08 08:01 Review of Systems ROS: all other systems reviewed are negative [facility] Medical History Medical History Chronic renal disease (Acute) Diabetes (Acute) Diabetic nephropathy (Acute) Anemia (Acute) Arthritis (Acute) Bleeding hemorrhoids (Acute) CHF (congestive heart failure) (Acute) Diabetes type 2, uncontrolled (Acute) History of kidney cancer (Acute) Hypertension (Acute) Hypothyroid (Acute) Surgical History Surgical History H/O sinus surgery (Acute) History of neck surgery (Acute) History of nephrectomy (Acute) Hx of exploratory laparotomy (Acute) Social History Social History Substance History: No History of Abuse Second Hand Smoke Exposure: No Smoking Status: Former smoker Tobacco Type: Cigarettes How Often Do You Have a Drink Containing Alcohol: Never Recent Travel in [facility] within the Last 8 Weeks: No Recent Out of Country Travel within the Last 8 Weeks: No Immunization History Tetanus Immunization: >5 Years Hx Influenza Vaccine This Season: Yes Exam Narrative Exam Narrative: GENERAL: Obese, alert, elderly female. Presenting in no acute distress. SKIN: Focused skin assessment warm/dry. 14 cm x 9 cm laceration to the anterior aspect of the right lower leg. HEAD: Atraumatic. Normocephalic. EYES: Pupils equal and round. No scleral icterus. No injection or drainage. ENT: No nasal bleeding or discharge. Mucous membranes pink and moist. NECK: Trachea midline. No JVD. CARDIOVASCULAR: Regular rate and rhythm. 3/6 systolic murmur appreciated. 1+ pitting edema to bilateral lower extremities. RESPIRATORY: No accessory muscle use. Clear to auscultation. Breath sounds equal bilaterally. GASTROINTESTINAL: Abdomen soft, non-tender, nondistended. Hepatic and splenic margins not palpable. MUSCULOSKELETAL: No obvious deformities. No clubbing. No cyanosis. No edema. Full range of motion with flexion extension to right knee and ankle. NEUROLOGICAL: Awake and alert. No obvious cranial nerve deficits. Motor grossly within normal limits. Normal speech. PSYCHIATRIC: Appropriate mood and affect; insight and judgment normal. Procedures Laceration Laceration 1: Site: lower extremity Side (If applicable): right Size (cm): 25 Description: linear Depth: simple, single layer Anesthetic used: lidocaine 1% Anesthesia technique:: local infiltration Amount (mL): 15 Pre-repair:: wound explored and irrigated extensively Skin layer closed with: ethilon Size (cm): 4-0 Number of sutures:: 29 Technique:: simple, interrupted Course Initial Documented Vital Signs Temperature 98 F 12/26/17 10:38 Pulse Rate 97 H 12/26/17 10:38 Respiratory Rate 21 12/26/17 10:38 Blood Pressure 130/63 12/26/17 10:38 Pulse Oximetry 96 12/26/17 10:38 Last Documented Vital Signs Temperature 98 F 12/26/17 10:38 Pulse Rate 97 H 12/26/17 10:38 Respiratory Rate 21 12/26/17 10:38 Blood Pressure 130/63 12/26/17 10:38 Pulse Oximetry 96 12/26/17 10:38 Medical Decision Making ANNY Attestation ANNY supervised visit: Yes Attestation: I, Dr. edgar, have reviewed the advance practice practitioner's documentation and am in agreement, met with the patient face to face, made the diagnosis, and the medical decision making was done by me. *My assessment and Findings: 87-year-old female presents status post fall with laceration repaired. Workup shows anemia that has dropped significantly recently. Patient is guaiac positive. Patient will be admitted for anemia and GI bleed and she agrees to this [facility] Narrative Medical decision making narrative: Patient is an 87-year-old female presenting for evaluation of a mechanical fall that resulted in a laceration to her lower leg. Patient is not on any anticoagulation. Labs and imaging ordered and pending. Patient's vital signs are stable, there are no focal deficits on exam. Family is at bedside. IV access was established, patient was placed on telemetry monitoring continuous pulse oximetry. Please see procedure report for laceration repair. Labs reviewed, patient's hemoglobin has dropped from over 12-7.8 in the matter of 6 weeks. Additionally BUN and creatinine are elevated when compared to prior at 30/1.22. Patient reports that she has occasional dark stools but attributes this to her iron therapy. Hemoccult was positive for blood. Patient reported that she takes extra aspirin when she cannot get blood return when she does a fingerstick to check her blood glucose. Patient was also seen and evaluated by my attending physician. Patient will be admitted for GI bleed. Patient family advised on findings and are agreeable to plan. Family requested that patient be placed in an assisted living because of her noncompliance with her medications and her risk for falls. She has several steps that she needs to ascend in order to get into her home, there is also step in her home. Patient is a high risk for falls. Medical Screen Exam Complete: Yes Emergency Medical Condition: Yes Differential Diagnosis Differential Diagnosis: Laceration versus fracture versus metabolic abnormality versus cardiac arrhythmia versus other Medical Records Medical records reviewed: Yes I reviewed the patient's medical records. Lab Data Lab results reviewed: Yes I reviewed the patient's lab results. Result diagrams: 12/26/17 11:00 12/26/17 11:00 Lab Results 12/26/17 12/26/17 12/26/17 Range/Units 11:00 11:00 11:00 WBC 8.0 (4.0-11.0) th/mm3 RBC 2.88 L (4.00-5.30) mil/mm3 Hgb 7.8 L (11.6-15.3) gm/dL Hct 24.2 L (35.0-46.0) % MCV 83.8 (80.0-100.0) fL MCH 27.1 (27.0-34.0) pg MCHC 32.4 (32.0-36.0) % RDW 16.3 (11.6-17.2) % Plt Count 168 (150-450) th/mm3 MPV 8.7 (7.0-11.0) fL Neut % (Auto) 61.4 (16.0-70.0) % Lymph % (Auto) 23.3 (9.0-44.0) % Lane % (Auto) 9.3 H (0.0-8.0) % Eos % (Auto) 5.2 H (0.0-4.0) % Baso % (Auto) 0.8 (0.0-2.0) % Neut # (Auto) 4.9 (1.8-7.7) th/mm3 Lymph # (Auto) 1.9 (1.0-4.8) th/mm3 Lane # (Auto) 0.7 (0.0-0.9) th/mm3 Eos # (Auto) 0.4 (0.0-0.4) th/mm3 Baso # (Auto) 0.1 (0.0-0.2) th/mm3 WBC Differential . Differential Comment Auto diff final Sodium 134 L (136-145) meq/L Potassium 4.5 (3.5-5.1) meq/L Chloride 101 (98-107) meq/L Carbon Dioxide 23.0 (21.0-32.0) meq/L Anion Gap 10 (5-15) meq/L BUN 30 H (7-18) mg/dL Creatinine 1.22 H (0.50-1.00) mg/dL Estimated GFR 42 L (>89) mL/min Random Glucose 331 H (74-106) mg/dL Calcium 8.6 (8.5-10.1) mg/dL Magnesium 2.1 (1.5-2.5) mg/dL Total Bilirubin 0.3 (0.2-1.0) mg/dL AST 23 (15-37) U/L ALT 21 (10-53) U/L Alkaline Phosphatase 103 (45-117) U/L Total Protein 6.8 (6.4-8.2) g/dL Albumin 2.8 L (3.4-5.0) g/dL TSH 1.790 (0.358-3.740) uIU/mL Imaging Data Radiologist's impression: Knee X-Ray 12/26/17 11:16 CONCLUSION: No evidence of recent bony injury. Tibia/Fibula X-Ray 12/26/17 11:16 CONCLUSION: No evidence of recent bony injury. Discharge Plan Discharge Disposition Patient Disposition: 30 Still Patient Discharge Condition Condition: Stable Discharge Details Diagnosis: GI bleed, Fall, Weakness, Laceration Physicians Team ED Provider: Gracie Edgar ED Midlevel Provider: Claudia Mcgovern Primary Care Provider: Roe Hernandez Attending Provider: Lele Rosas Status ED Status: Admitted Patient
--- NOTE | 2017-12-26 11:43 | XR ---
EXAM DATE: 12/26/2017 11:38 AM EDT AGE/SEX: 87 years / Female INDICATIONS: Mid right tibia laceration and pain after fall. CLINICAL DATA: This is the patient's initial encounter. Patient reports that signs and symptoms have been present for 1 day and indicates a pain score of 7/10. MEDICAL/SURGICAL HISTORY: None. None. COMPARISON: No prior exams available for comparison. FINDINGS: Bony structures are intact and in normal alignment. Osseous density is normal. Soft tissues are unre markable. No radiopaque foreign bodies seen. CONCLUSION: No evidence of recent bony injury. Electronically signed by: Kishore Shankar MD 12/26/2017 11:42 AM EDT
--- NOTE | 2017-12-26 11:43 | XR ---
EXAM DATE: 12/26/2017 11:38 AM EDT AGE/SEX: 87 years / Female INDICATIONS: Right knee pain after fall. CLINICAL DATA: This is the patient's initial encounter. Patient reports that signs and symptoms have been present for 1 day and indicates a pain score of 7/10. MEDICAL/SURGICAL HISTORY: None. None. COMPARISON: [facility] [place] TIBIA FIBULA RIGHT 2V, 12/26/2017. . FINDINGS: Bony structures are intact and in normal alignment. Joints are intact without dislocation or signifi cant arthropathy. Osseous density is normal. Soft tissues are unremarkable. No radiopaque foreign bodies seen. CONCLUSION: No evidence of recent bony injury. Electronically signed by: Kishore Shankar MD 12/26/2017 11:41 AM EDT
[2017-12-26 11:46] LABS: Baso # (Auto) 0.1 th/mm3 (0.0-0.2); Baso % (Auto) 0.8 % (0.0-2.0); Eos # (Auto) 0.4 th/mm3 (0.0-0.4); Eos % (Auto) 5.2 % (0.0-4.0); Hematocrit 24.2 % (35.0-46.0); Hemoglobin 7.8 gm/dL (11.6-15.3); Lymph # (Auto) 1.9 th/mm3 (1.0-4.8); Lymph % (Auto) 23.3 % (9.0-44.0); Mean Corpuscular HGB Conc 32.4 % (32.0-36.0); Mean Corpuscular Hemoglobin 27.1 pg (27.0-34.0); Mean Corpuscular Volume 83.8 fL (80.0-100.0); Mean Platelet Volume 8.7 fL (7.0-11.0); Mono # (Auto) 0.7 th/mm3 (0.0-0.9); Mono % (Auto) 9.3 % (0.0-8.0); Neut # (Auto) 4.9 th/mm3 (1.8-7.7); Neut % (Auto) 61.4 % (16.0-70.0); Platelet Count 168 th/mm3 (150-450); Red Blood Count 2.88 mil/mm3 (4.00-5.30); Red Cell Distribution Width 16.3 % (11.6-17.2)
[2017-12-26 12:04] LABS: Albumin 2.8 g/dL (3.4-5.0); Anion Gap 10 meq/L (5-15); Aspartate Aminotransferase 23 U/L (15-37); Blood Urea Nitrogen 30 mg/dL (7-18); Calcium 8.6 mg/dL (8.5-10.1); Chloride 101 meq/L (98-107); Glomerular Filtration Rate 42 mL/min (>89); Glucose,Random 331 mg/dL (74-106); Potassium 4.5 meq/L (3.5-5.1); Sodium 134 meq/L (136-145)
[2017-12-26 12:06] LABS: Magnesium 2.1 mg/dL (1.5-2.5)
[2017-12-26 12:08] LABS: Alanine Aminotransferase 21 U/L (10-53); Alkaline Phosphatase 103 U/L (45-117); Total Protein 6.8 g/dL (6.4-8.2)
[2017-12-26 12:14] LABS: Thyroid Stimulating Hormone 1.79 uIU/mL (0.358-3.740)
--- NOTE | 2017-12-26 13:23 | P.HP ---
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 Patient initially presented to the emergency department for evaluation of a 25 cm laceration to her right lower leg after she sustained a mechanical fall just prior to arrival. Patient was walking when she tripped landing on her right knee and lower leg. Patient appears to be a poor historian family members at bedside helping to elaborate. She states that she has been weak/dizzy for months, she also reports chronic weakness. Family is at bedside and corroborates this. Patient denies any chest pain or shortness of breath prior to falling. She did not eaten breakfast because she was n.p.o. for an outpatient ultrasound of her liver. She reports pain in her leg is a 2 out of 10, aching. Pain is constant. Pain is worse with movement. Pain is somewhat alleviated with rest. Patient's tetanus vaccine is not up-to- date. Patient denies head injury or loss of consciousness. Patient also denies fevers, chills, nausea, vomiting, shortness of breath or chest pain. Knee X-Ray 12/26/17 11:16 CONCLUSION: No evidence of recent bony injury. Tibia/Fibula X-Ray 12/26/17 11:16 CONCLUSION: No evidence of recent bony injury. Patient found to have a hemoglobin of 7.8 with a positive Hemoccult stool emergency department Review of outpatient records patient had a hemoglobin of 11.5 on November 13, 2017 and patient hemoglobin trends between 10 and 11 Patient also endorses dark tarry stools for the past 1-2 weeks. 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 PAST SURGICAL HISTORY: Includes appendectomy, rhinoplasty, total abdominal hysterectomy and BSO. She has had a cervical fusion. She has had bilateral cataract surgery. She has had colonoscopy showing polyps and diverticulosis. As stated, she has had the left nephrectomy. She did have in May an endoscopy showing a bleeding angiodysplastic lesion in the H gastric atrium. SOCIAL HISTORY: She is and lives alone. She is independent in her activities of daily living. She lost her approximately 15 years ago. She stopped smoking over 20 years ago. She denies alcohol consumption. FAMILY MEDICAL HISTORY Reviewed and noncontributory - Diagnosis (1) GI bleed Review of Systems All other systems reviewed negative except as stated in [facility]PI [facility] - History History Provided By: Patient, Manager Career / EMT - Medical History Medical History: Medical History (Last Updated 12/26/17 @ 12:37 by Leandra Rousseau) Chronic renal disease Diabetes Diabetic nephropathy Anemia Arthritis Bleeding hemorrhoids CHF (congestive heart failure) Diabetes type 2, uncontrolled History of kidney cancer Hypertension Hypothyroid - Surgical History Surgical History: Surgical History (Last Reviewed 12/26/17 @ 11:23 by SHADE Lima) H/O sinus surgery History of neck surgery History of nephrectomy Hx of exploratory laparotomy - Tobacco History Second Hand Smoke Exposure: No Tobacco Use In Past 30 Days: No Smoking Status: Former smoker Tobacco Type: Cigarettes - Alcohol History How Often Do You Have a Drink Containing Alcohol: Never - Substance Use History Substance History: No History of Abuse - Travel History Recent Travel in the [place] Within the Last 8 Weeks: No Recent Travel Out of the Country Within the Last 8 Weeks: No - Immunization History Tetanus Immunization: >5 Years Hx Influenza Vaccine This Season: Yes Medications and Allergies Allergies Allergy/AdvReac Type Severity Reaction Status Date / Time morphine AdvReac Mild NAUSEA/VOMI Verified 10/23/17 13:22 TING aspirin AdvReac Unknown NV Verified 10/23/17 13:22 cephalexin AdvReac Unknown NV Verified 10/23/17 13:22 ibuprofen AdvReac Unknown NV Verified 10/23/17 13:22 OMNICEF Allergy Intermediate DIARRHEA Uncoded 05/23/08 08:01 Home Medications Medication Instructions Recorded Confirmed Type docusate sodium [Colace] 100 mg PO DAILY 11/06/17 12/26/17 History ferrous sulfate [FeroSul] 325 mg PO BID 11/06/17 12/26/17 History furosemide [Lasix] 40 mg PO DAILY 11/06/17 12/26/17 History lorazepam 1 mg PO QID PRN 11/06/17 12/26/17 History nadolol 20 mg PO DAILY 11/06/17 12/26/17 History insulin aspart U-100 [Novolog 8 - 10 unit SUB-Q TIDAC 12/26/17 12/26/17 History Flexpen U-100 Insulin] insulin degludec [Tresiba 24 unit SUB-Q DAILY 12/26/17 12/26/17 History FlexTouch U-100] levothyroxine 100 mcg PO DAILY 12/26/17 12/26/17 History potassium chloride [K-Tab] 8 meq PO DAILY 12/26/17 12/26/17 History Active Medications: Active Medications Sodium Chloride (Ns Flush) 2 ml IV.FLUSH PRN PRN PRN Reason: FLUSH AFTER USING IV ACCESS Last Admin: 12/26/17 11:48 Dose: 2 ml Exam Vital signs: Vital Signs 12/26/17 10:38 Temperature 98 F Pulse Rate 97 H Respiratory Rate 21 Blood Pressure 130/63 Pulse Oximetry 96 Intake & Output 12/25/17 12/26/17 12/26/17 18:59 06:59 18:59 Weight 77.111 kg Narrative: GENERAL: This is a well-nourished, well-developed patient, in no apparent distress. CARDIOVASCULAR: Regular rate and rhythm RESPIRATORY: Clear to auscultation. Breath sounds equal bilaterally. No wheezes , rales, or rhonchi. GASTROINTESTINAL: Abdomen soft, non-tender, nondistended. Normal active bowel sounds MUSCULOSKELETAL: Extremities without clubbing, cyanosis, or edema. NEURO: Alert & Oriented x4 to person, place, time, situation. Moves all ext x4 Results - Labs CBC & Chem 7: 12/26/17 11:00 12/26/17 11:00 Labs: Laboratory Results - last 24 hr 12/26/17 12/26/17 12/26/17 11:00 11:00 11:00 WBC 8.0 RBC 2.88 L Hgb 7.8 L Hct 24.2 L MCV 83.8 MCH 27.1 MCHC 32.4 RDW 16.3 Plt Count 168 MPV 8.7 Neut % (Auto) 61.4 Lymph % (Auto) 23.3 Converse % (Auto) 9.3 H Eos % (Auto) 5.2 H Baso % (Auto) 0.8 Neut # (Auto) 4.9 Lymph # (Auto) 1.9 Converse # (Auto) 0.7 Eos # (Auto) 0.4 Baso # (Auto) 0.1 WBC Differential . Differential Comment Auto diff final Sodium 134 L Potassium 4.5 Chloride 101 Carbon Dioxide 23.0 Anion Gap 10 BUN 30 H Creatinine 1.22 H Estimated GFR 42 L Random Glucose 331 H Calcium 8.6 Magnesium 2.1 Total Bilirubin 0.3 AST 23 ALT 21 Alkaline Phosphatase 103 Total Protein 6.8 Albumin 2.8 L TSH 1.790 - Imaging Impressions Knee X-Ray 12/26/17 11:16 CONCLUSION: No evidence of recent bony injury. Tibia/Fibula X-Ray 12/26/17 11:16 CONCLUSION: No evidence of recent bony injury. Caprini VTE Risk Assessment Caprini VTE Risk Assessment: Moderate/High Risk (score >= 2) Caprini Risk Assessment Model: Point Value = 1 Point Value = 2 Point Value = 3 Point Value = 5 Age 41-60 Minor surgery BMI > 25 kg/m2 Swollen legs Varicose veins or History of unexplained or recurrent spontaneous Oral contraceptives or hormone replacement Sepsis (< 1 month) Serious lung disease, including pneumonia (< 1 month) Abnormal pulmonary function Acute myocardial infarction Congestive heart failure (< 1 month) History of inflammatory bowel disease Medical patient at bed rest Age 61-74 Arthroscopic surgery Major open surgery (> 45 min) Laparoscopic surgery (> 45 min) Malignancy Confined to bed (> 72 hours) Immobilizing plaster cast Central venous access Age >= 75 History of VTE Family history of VTE Factor V Leiden Prothrombin [id number] Lupus anticoagulant Anticardiolipin antibodies Elevated serum homocysteine Heparin-induced thrombocytopenia Other congenital or acquired thrombophilia Stroke (< 1 month) Elective arthroplasty Hip, pelvis, or leg fracture Acute spinal cord injury (< 1 month) Prophylaxis Regimen: Total Risk Factor Score Risk Level Prophylaxis Regimen 0-1 Low Early ambulation 2 Moderate Order ONE of the following: *Sequential Compression Device (SCD) *Heparin 5000 units SQ BID 3-4 Higher Order ONE of the following medications: *Heparin 5000 units SQ TID *Enoxaparin/Lovenox 40 mg SQ daily (WT < 150 kg, CrCl > 30 mL/min) *Enoxaparin/Lovenox 30 mg SQ daily (WT < 150 kg, CrCl > 10-29 mL/min) *Enoxaparin/Lovenox 30 mg SQ BID (WT < 150 kg, CrCl > 30 mL/min) AND/OR *Sequential Compression Device (SCD) 5 or more Highest Order ONE of the following medications: *Heparin 5000 units SQ TID (Preferred with Epidurals) *Enoxaparin/Lovenox 40 mg SQ daily (WT < 150 kg, CrCl > 30 mL/min) *Enoxaparin/Lovenox 30 mg SQ daily (WT < 150 kg, CrCl > 10-29 mL/min) *Enoxaparin/Lovenox 30 mg SQ BID (WT < 150 kg, CrCl > 30 mL/min) AND *Sequential Compression Device (SCD) Assessment and Plan - Assessment (1) GI bleed Code(s): K92.2 - Gastrointestinal hemorrhage, unspecified Status: Acute Plan: Mechanical fall with laceration repaired in ER This is an 87-year-old female patient with past medical history which includes anemia, gastric ulcer and gastritis, COPD, hypertension, chronic kidney disease stage III, hypothyroidism, type 2 diabetes, 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 Patient initially presented to the emergency department for evaluation of a 25 cm laceration to her right lower leg after she sustained a mechanical fall just prior to arrival. Knee X-Ray 12/26/17 11:16 CONCLUSION: No evidence of recent bony injury. Tibia/Fibula X-Ray 12/26/17 11:16 CONCLUSION: No evidence of recent bony injury. consult PT Anemia secondary to GI bleed Patient also has a history of gastric ulcers and gastritis Patient found to have a hemoglobin of 7.8 with a positive Hemoccult stool emergency department Review of outpatient records patient had a hemoglobin of 11.5 on November 13, 2017 and patient hemoglobin trends between 10 and 11 Patient also endorses dark tarry stools for the past 1-2 weeks. Consult GI IVF Protonix IV ER ordered 2 units PRBCs serial hemoglobin clear liquids now then NPO after midnight Cardiac murmur Echocardiogram 10/24/17: The left ventricular systolic function is normal with an estimated ejection fraction in the range of 60-65%. Mild concentric left ventricular hypertrophy. Normal left ventricular size. The left atrial size is mildly dilated. Calcification of both mitral valve leaflets. Mitral annular calcification is present. [id number] mitral valve regurgitation. Mild mitral valve stenosis. Mitral valve mean gradient is 7 mmHg. The mitral valve area by Pressure Halftime Method is 1.75 cm. Diffuse calcification of the aortic valve. Mild aortic valve stenosis. Aortic valve area is 1.2 cm. Aortic valve mean gradient is 20 mmHg. There is mild to moderate tricuspid valve regurgitation. The estimated pulmonary arterial pressure is 68.7 mmHg. COPD not in acute exacerbation does not take inhalers or nebs at home Duonebs if needed HTN Resume patient's home Nadolol 20 mg PO daily at home - will hold at this time in light of GI bleed Monitor BP CKD stage III avoid nephrotoxic agents Hypothyroidism continue patient's home Levothyroxine 100 mcg daily DM type 2 Patient takes Tresiba 30 Units at home daily - will hold at this time as patient will be NPO accu checks ACHS with SSI coverage DVT prophlyasis with SCDs avoid chemical DVT prophylaxis due to GI bleed <Lele Rosas - Last Filed: 12/30/17 15:59> History of Present Illness Primary Care Physician: Roe Hernandez MD - Diagnosis (1) GI bleed Inpatient Certification: I certify that the inpatient services were ordered in accordance with Medicare regulations governing the order. This includes certification that hospital inpatient services are reasonable and necessary and in the case of services not specified as inpatient-only under 42 CFR 419.22(n), that they are appropriately provided as inpatient services in accordance to with the 2-midnight benchmark under 43 CFR 412.3(e) [facility] - Medical History Medical History: Medical History (Last Updated 12/26/17 @ 12:37 by Leandra Rousseau) Chronic renal disease Diabetes Diabetic nephropathy Anemia Arthritis Bleeding hemorrhoids CHF (congestive heart failure) Diabetes type 2, uncontrolled History of kidney cancer Hypertension Hypothyroid - Surgical History Surgical History: Surgical History (Last Reviewed 12/26/17 @ 11:23 by SHADE Lima) H/O sinus surgery History of neck surgery History of nephrectomy Hx of exploratory laparotomy Exam Vital signs: Intake & Output 12/29/17 12/30/17 12/30/17 18:59 06:59 18:59 Other: Date of Last Bowel Movement 12/28/17 Results - Labs CBC & Chem 7: 12/28/17 07:59 12/27/17 13:53 Caprini VTE Risk Assessment Caprini Risk Assessment Model: Point Value = 1 Point Value = 2 Point Value = 3 Point Value = 5 Age 41-60 Minor surgery BMI > 25 kg/m2 Swollen legs Varicose veins or History of unexplained or recurrent spontaneous Oral contraceptives or hormone replacement Sepsis (< 1 month) Serious lung disease, including pneumonia (< 1 month) Abnormal pulmonary function Acute myocardial infarction Congestive heart failure (< 1 month) History of inflammatory bowel disease Medical patient at bed rest Age 61-74 Arthroscopic surgery Major open surgery (> 45 min) Laparoscopic surgery (> 45 min) Malignancy Confined to bed (> 72 hours) Immobilizing plaster cast Central venous access Age >= 75 History of VTE Family history of VTE Factor V Leiden Prothrombin [id number] Lupus anticoagulant Anticardiolipin antibodies Elevated serum homocysteine Heparin-induced thrombocytopenia Other congenital or acquired thrombophilia Stroke (< 1 month) Elective arthroplasty Hip, pelvis, or leg fracture Acute spinal cord injury (< 1 month) Prophylaxis Regimen: Total Risk Factor Score Risk Level Prophylaxis Regimen 0-1 Low Early ambulation 2 Moderate Order ONE of the following: *Sequential Compression Device (SCD) *Heparin 5000 units SQ BID 3-4 Higher Order ONE of the following medications: *Heparin 5000 units SQ TID *Enoxaparin/Lovenox 40 mg SQ daily (WT < 150 kg, CrCl > 30 mL/min) *Enoxaparin/Lovenox 30 mg SQ daily (WT < 150 kg, CrCl > 10-29 mL/min) *Enoxaparin/Lovenox 30 mg SQ BID (WT < 150 kg, CrCl > 30 mL/min) AND/OR *Sequential Compression Device (SCD) 5 or more Highest Order ONE of the following medications: *Heparin 5000 units SQ TID (Preferred with Epidurals) *Enoxaparin/Lovenox 40 mg SQ daily (WT < 150 kg, CrCl > 30 mL/min) *Enoxaparin/Lovenox 30 mg SQ daily (WT < 150 kg, CrCl > 10-29 mL/min) *Enoxaparin/Lovenox 30 mg SQ BID (WT < 150 kg, CrCl > 30 mL/min) AND *Sequential Compression Device (SCD) Assessment and Plan - Assessment (1) GI bleed Code(s): K92.2 - Gastrointestinal hemorrhage, unspecified Status: Acute - Attending Attestation Patient examined. Assessment and plan formulated with Merary Novak PA-C. I agree with the above. <Merary Novak W - Last Filed: 12/26/17 17:35> (1) GI bleed Qualifiers: GI bleed type/associated pathology: unspecified gastrointestinal hemorrhage type Qualified Code(s): K92.2 - Gastrointestinal hemorrhage, unspecified <Llee Rosas B - Last Filed: 12/30/17 15:59> (1) GI bleed Qualifiers: GI bleed type/associated pathology: unspecified gastrointestinal hemorrhage type Qualified Code(s): K92.2 - Gastrointestinal hemorrhage, unspecified
[2017-12-26] MEDS ORDERED: Pantoprazole Inj 80 MG in Sodium Chlor 0.9% Inj 35 ML IV.SIG ONE (13:51)
[2017-12-26] MEDS ORDERED: Dextrose 50% in Water 50 ML Vial IV.PUSH PRN (14:41)
[2017-12-26] MEDS ORDERED: Pantoprazole Inj 40 MG Vial IV.PUSH SCH (15:00)
--- NOTE | 2017-12-26 16:32 | P.CONGI ---
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 Pt presented to the ER today after a fall and laceration to the right knee, laceration has been repaired. Our service has been consulted to evaluate pt for symptomatic anemia and Hemoccult positive stools in the ER. Pt reports weakness over the past couple months as well as some dizziness. States that she has been having black stools for a long time due to her iron supplements, unsure of change in consistency of the stool because she does not check. Does report having some issues with constipation and has tried taking laxatives OTC with some relief. Denies any noticeable BRB in her stool. Also complaining of epigastric pain, intermittent, described as aching. Has been taking Lansoprazole prescription with little change in the pain. Also reports nausea, denies any emesis. Pt denies ETOH and smoking. Took baby ASA, denies use of NSAIDs. <Daphne Howard - Last Filed: 12/26/17 16:11> Review of Systems Constitutional: Reports fatigue, Reports lack of energy Gastrointestinal: Reports abdominal pain, Reports black, tarry stools, Reports constipation, Reports heartburn, Reports nausea, Denies bright, red blood in stools, Denies vomiting Neurologic: Reports dizziness <Daphne Howard - Last Filed: 12/26/17 16:11> [facility] - History History Provided By: Patient, Lode Miner / EMT - Medical History Medical History: Medical History (Last Updated 12/26/17 @ 12:37 by Leandra Rousseau) Chronic renal disease Diabetes Diabetic nephropathy Anemia Arthritis Bleeding hemorrhoids CHF (congestive heart failure) Diabetes type 2, uncontrolled History of kidney cancer Hypertension Hypothyroid - Surgical History Surgical History: Surgical History (Last Reviewed 12/26/17 @ 11:23 by SHADE Lima) H/O sinus surgery History of neck surgery History of nephrectomy Hx of exploratory laparotomy - Tobacco History Second Hand Smoke Exposure: No Tobacco Use In Past 30 Days: No Smoking Status: Former smoker Tobacco Type: Cigarettes - Alcohol History How Often Do You Have a Drink Containing Alcohol: Never - Substance Use History Substance History: No History of Abuse - Travel History Recent Travel in the [place] Within the Last 8 Weeks: No Recent Travel Out of the Country Within the Last 8 Weeks: No - Immunization History Tetanus Immunization: >5 Years Hx Influenza Vaccine This Season: Yes <Daphne Howard - Last Filed: 12/26/17 16:11> - Medical History Medical History: Medical History (Last Updated 12/26/17 @ 12:37 by Leandra Rousseau) Chronic renal disease Diabetes Diabetic nephropathy Anemia Arthritis Bleeding hemorrhoids CHF (congestive heart failure) Diabetes type 2, uncontrolled History of kidney cancer Hypertension Hypothyroid - Surgical History Surgical History: Surgical History (Last Reviewed 12/26/17 @ 11:23 by SHADE Lima) H/O sinus surgery History of neck surgery History of nephrectomy Hx of exploratory laparotomy <Dee Monk - Last Filed: 12/26/17 17:28> Medications and Allergies Active Medications: Active Medications Dextrose (D50w Vial) 50 ml IV.PUSH UNSCH PRN PRN Reason: PER HYPOGLYCEMIA PROTOCOL Docusate Sodium (Colace) 100 mg PO DAILY DONITA Enalaprilat (Vasotec Inj) 1.25 mg IV.PUSH Q6H PRN PRN Reason: SYS BP GREATER THAN 180 MMHG Ferrous Sulfate (Ferosul) 325 mg PO BID DONITA Furosemide (Lasix) 40 mg PO DAILY DONITA Glucagon (Glucagon Inj) 1 mg OTHER PRN PRN PRN Reason: for Hypoglycemia Protocol Insulin Aspart (Novolog Insulin Correctional Sugar Inj) 0 unit SQ ACHS DONITA; Protocol Levothyroxine Sodium (Synthroid) 100 mcg PO DAILY@0600 DONITA Lorazepam (Ativan Inj) 0.5 mg IV.PUSH Q8H PRN PRN Reason: ANXIETY AND/OR AGITATION Nadolol (Corgard) 20 mg PO DAILY DONITA Ondansetron HCl (Zofran Inj) 4 mg IV.PUSH Q6H PRN PRN Reason: NAUSEA Pantoprazole Sodium (Protonix Inj) 40 mg IV.PUSH Q24H DONITA Potassium Chloride (Micro-K) 8 meq PO DAILY DONITA Sodium Chloride (Ns Flush) 2 ml IV.FLUSH PRN PRN PRN Reason: FLUSH AFTER USING IV ACCESS Last Admin: 12/26/17 11:48 Dose: 2 ml Sodium Chloride (Ns Flush) 2 ml IV.FLUSH BID DONITA Sodium Chloride (Ns Flush) 2 ml IV.FLUSH PRN PRN PRN Reason: FLUSH AFTER USING IV ACCESS <Daphne Howard - Last Filed: 12/26/17 16:11> Active Medications: Active Medications Dextrose (D50w Vial) 50 ml IV.PUSH UNSCH PRN PRN Reason: PER HYPOGLYCEMIA PROTOCOL Docusate Sodium (Colace) 100 mg PO DAILY DONITA Enalaprilat (Vasotec Inj) 1.25 mg IV.PUSH Q6H PRN PRN Reason: SYS BP GREATER THAN 180 MMHG Ferrous Sulfate (Ferosul) 325 mg PO BID DONITA Furosemide (Lasix) 40 mg PO DAILY DONITA Glucagon (Glucagon Inj) 1 mg OTHER PRN PRN PRN Reason: for Hypoglycemia Protocol Insulin Aspart (Novolog Insulin Correctional Sugar Inj) 0 unit SQ ACHS DONITA; Protocol Last Admin: 12/26/17 16:40 Dose: 10 unit Levothyroxine Sodium (Synthroid) 100 mcg PO DAILY@0600 DONITA Lorazepam (Ativan Inj) 0.5 mg IV.PUSH Q8H PRN PRN Reason: ANXIETY AND/OR AGITATION Nadolol (Corgard) 20 mg PO DAILY DONITA Ondansetron HCl (Zofran Inj) 4 mg IV.PUSH Q6H PRN PRN Reason: NAUSEA Pantoprazole Sodium (Protonix Inj) 40 mg IV.PUSH Q24H DONITA Potassium Chloride (Micro-K) 8 meq PO DAILY DONITA Sodium Chloride (Ns Flush) 2 ml IV.FLUSH PRN PRN PRN Reason: FLUSH AFTER USING IV ACCESS Last Admin: 12/26/17 11:48 Dose: 2 ml Sodium Chloride (Ns Flush) 2 ml IV.FLUSH BID DONITA Sodium Chloride (Ns Flush) 2 ml IV.FLUSH PRN PRN PRN Reason: FLUSH AFTER USING IV ACCESS <Dee Monk - Last Filed: 12/26/17 17:28> Allergies Allergy/AdvReac Type Severity Reaction Status Date / Time morphine AdvReac Mild NAUSEA/VOMI Verified 10/23/17 13:22 TING aspirin AdvReac Unknown NV Verified 10/23/17 13:22 cephalexin AdvReac Unknown NV Verified 10/23/17 13:22 ibuprofen AdvReac Unknown NV Verified 10/23/17 13:22 OMNICEF Allergy Intermediate DIARRHEA Uncoded 05/23/08 08:01 Home Medications Medication Instructions Recorded Confirmed Type docusate sodium [Colace] 100 mg PO DAILY 11/06/17 12/26/17 History ferrous sulfate [FeroSul] 325 mg PO BID 11/06/17 12/26/17 History furosemide [Lasix] 40 mg PO DAILY 11/06/17 12/26/17 History lansoprazole 30 mg PO BID 11/06/17 12/26/17 History lorazepam 1 mg PO QID PRN 11/06/17 12/26/17 History nadolol 20 mg PO DAILY 11/06/17 12/26/17 History insulin aspart U-100 [Novolog 8 - 10 unit SUB-Q TIDAC 12/26/17 12/26/17 History Flexpen U-100 Insulin] insulin degludec [Tresiba 24 unit SUB-Q DAILY 12/26/17 12/26/17 History FlexTouch U-100] levothyroxine 100 mcg PO DAILY 12/26/17 12/26/17 History potassium chloride [K-Tab] 8 meq PO DAILY 12/26/17 12/26/17 History Exam Vital signs: Vital Signs 12/26/17 10:38 12/26/17 11:17 12/26/17 11:30 Temperature 98 F Pulse Rate 97 H 94 H Respiratory Rate 21 18 Blood Pressure 130/63 137/67 Pulse Oximetry 96 97 97 12/26/17 12:30 12/26/17 13:30 Temperature Pulse Rate 100 H 88 Respiratory Rate 21 16 Blood Pressure 145/65 H 171/61 H Pulse Oximetry 95 Intake & Output 12/25/17 12/26/17 12/26/17 18:59 06:59 18:59 Intake Total 100 / 100 Balance 100 / 100 Weight 77.111 kg Intake: IV 100 / 100 Protonix Inj 80 MG In NS Inj 35 100 / 100 ML @ 420 mls/hr IV.SIG BOLUS ONE Rx#:[id number] - Constitutional no acute distress - Routine HEENT Exam Head: Present: normocephalic, atraumatic - Routine Respiratory Exam Absent: accessory muscle use - Routine Cardiovascular Exam Present: RRR - Routine Abdominal Exam Present: soft, normoactive bowel sounds. Absent: tenderness, distended - Routine Extremities Exam Present: pallor - Routine Skin Exam Present: dry, warm - Routine Neurological Exam Present: alert, oriented X3 <Daphne Howard - Last Filed: 12/26/17 16:11> Vital signs: Vital Signs 12/26/17 10:38 12/26/17 11:17 12/26/17 11:30 Temperature 98 F Pulse Rate 97 H 94 H Respiratory Rate 21 18 Blood Pressure 130/63 137/67 Pulse Oximetry 96 97 97 12/26/17 12:30 12/26/17 13:30 Temperature Pulse Rate 100 H 88 Respiratory Rate 21 16 Blood Pressure 145/65 H 171/61 H Pulse Oximetry 95 Intake & Output 12/25/17 12/26/17 12/26/17 18:59 06:59 18:59 Intake Total 100 / 100 Balance 100 / 100 Weight 77.111 kg Intake: IV 100 / 100 Protonix Inj 80 MG In NS Inj 35 100 / 100 ML @ 420 mls/hr IV.SIG BOLUS ONE Rx#:[id number] <Dee Monk - Last Filed: 12/26/17 17:28> Results - Labs CBC & Chem 7: 12/26/17 11:00 12/26/17 11:00 Labs: Laboratory Results - last 24 hr 12/26/17 12/26/17 12/26/17 09:42 11:00 11:00 WBC 8.0 RBC 2.88 L Hgb 7.8 L Hct 24.2 L MCV 83.8 MCH 27.1 MCHC 32.4 RDW 16.3 Plt Count 168 MPV 8.7 Neut % (Auto) 61.4 Lymph % (Auto) 23.3 [place] % (Auto) 9.3 H Eos % (Auto) 5.2 H Baso % (Auto) 0.8 Neut # (Auto) 4.9 Lymph # (Auto) 1.9 [place] # (Auto) 0.7 Eos # (Auto) 0.4 Baso # (Auto) 0.1 WBC Differential . Differential Comment Auto diff final Sodium Potassium Chloride Carbon Dioxide Anion Gap BUN Creatinine Estimated GFR Random Glucose Calcium Magnesium 2.1 Total Bilirubin AST ALT Alkaline Phosphatase Total Protein Albumin TSH 1.790 Blood Type O Positive Antibody Screen Negative MTS Gel Crossmatch 12/26/17 12/26/17 11:00 13:59 WBC RBC Hgb Hct MCV MCH MCHC RDW Plt Count MPV Neut % (Auto) Lymph % (Auto) [place] % (Auto) Eos % (Auto) Baso % (Auto) Neut # (Auto) Lymph # (Auto) [place] # (Auto) Eos # (Auto) Baso # (Auto) WBC Differential Differential Comment Sodium 134 L Potassium 4.5 Chloride 101 Carbon Dioxide 23.0 Anion Gap 10 BUN 30 H Creatinine 1.22 H Estimated GFR 42 L Random Glucose 331 H Calcium 8.6 Magnesium Total Bilirubin 0.3 AST 23 ALT 21 Alkaline Phosphatase 103 Total Protein 6.8 Albumin 2.8 L TSH Blood Type Antibody Screen MTS Gel Crossmatch See Detail - Imaging Impressions Knee X-Ray 12/26/17 11:16 CONCLUSION: No evidence of recent bony injury. Tibia/Fibula X-Ray 12/26/17 11:16 CONCLUSION: No evidence of recent bony injury. <Daphne Howard - Last Filed: 12/26/17 16:11> - Labs CBC & Chem 7: 12/26/17 11:00 12/26/17 11:00 Labs: Laboratory Results - last 24 hr 12/26/17 12/26/17 12/26/17 09:42 11:00 11:00 WBC 8.0 RBC 2.88 L Hgb 7.8 L Hct 24.2 L MCV 83.8 MCH 27.1 MCHC 32.4 RDW 16.3 Plt Count 168 MPV 8.7 Neut % (Auto) 61.4 Lymph % (Auto) 23.3 [place] % (Auto) 9.3 H Eos % (Auto) 5.2 H Baso % (Auto) 0.8 Neut # (Auto) 4.9 Lymph # (Auto) 1.9 [place] # (Auto) 0.7 Eos # (Auto) 0.4 Baso # (Auto) 0.1 WBC Differential . Differential Comment Auto diff final Sodium Potassium Chloride Carbon Dioxide Anion Gap BUN Creatinine Estimated GFR POC Glucose Random Glucose Calcium Magnesium 2.1 Total Bilirubin AST ALT Alkaline Phosphatase Total Protein Albumin TSH 1.790 Blood Type O Positive Antibody Screen Negative MTS Gel Crossmatch 12/26/17 12/26/17 12/26/17 11:00 13:59 16:38 WBC RBC Hgb Hct MCV MCH MCHC RDW Plt Count MPV Neut % (Auto) Lymph % (Auto) [place] % (Auto) Eos % (Auto) Baso % (Auto) Neut # (Auto) Lymph # (Auto) [place] # (Auto) Eos # (Auto) Baso # (Auto) WBC Differential Differential Comment Sodium 134 L Potassium 4.5 Chloride 101 Carbon Dioxide 23.0 Anion Gap 10 BUN 30 H Creatinine 1.22 H Estimated GFR 42 L POC Glucose 344 H Random Glucose 331 H Calcium 8.6 Magnesium Total Bilirubin 0.3 AST 23 ALT 21 Alkaline Phosphatase 103 Total Protein 6.8 Albumin 2.8 L TSH Blood Type Antibody Screen MTS Gel Crossmatch See Detail - Imaging Impressions Knee X-Ray 12/26/17 11:16 CONCLUSION: No evidence of recent bony injury. Tibia/Fibula X-Ray 12/26/17 11:16 CONCLUSION: No evidence of recent bony injury. <Dee Monk - Last Filed: 12/26/17 17:28> Assessment and Plan - Plan Assessment: - Anemia with Hemoccult positive stools History of GIB. Pt reports black stools, states this has been going on a long time, she is on iron supplements. Denies any noticeable change in consistency or frequency of stools. Reports constipation, takes laxatives OTC when needed. Complaining of nausea, denies emesis. Also complaining of epigastric pain, dull, intermittent, worse over the past few days. 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 Colonoscopy Feb 2017 --> Polyps in ascending, transverse, descending and sigmoid colon. Multiple, ranging in size from 5-15 mm. Mild diverticulosis in the left colon. Internal hemorrhoids. Pathology (transverse colon) tubular adenoma (ascending colon) tubular adenoma (fragments of) (descending colon) inflammatory polyp. 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 Followed by Dr. Larios, she was sent for repeat labs and US liver which she states she did this morning. Hypoalbuminemia- albumin 2.8. No thrombocytopenia, will check for coagulopathy Plan: Pt does not want colonoscopy, will agree to proceed with EGD EGD tomorrow with possible banding Obtain consent NPO after MN Protonix Monitor H/H Check PT/INR Further recommendations to follow Pt has been seen and examined by myself and Dr. Monk and this note is written on his behalf <Daphne Howard - Last Filed: 12/26/17 16:11> - Plan Seen and examined with PIPE STRAIGHTENER, egd tomorrow. Colonoscopy when patient agrees. Monitor labs. Thank you The exam, history, and the medical decision-making described in the above note were completed with the assistance of the mid-level provider. I reviewed and agree with the findings presented. I attest that I had a [id number] encounter with the patient on the same day, and personally performed and documented my assessment and findings in the medical record. <Dee Monk - Last Filed: 12/26/17 17:28>
[2017-12-26] MEDS: Insulin NovoLOG Aspart Correctional Sugar Inj SQ SCH ×2 (16:40→22:14)
[2017-12-26] MEDS ORDERED: Acetaminophen 325 MG Tablet PO PRN (19:25)
--- NOTE | 2017-12-26 21:02 | ECG ---
Date Performed: 12/26/2017 Time Performed: 10:45:16 PTAGE: 87 years EKG: Sinus rhythm MINIMAL ST DEPRESSION BORDERLINE ECG PREVIOUS TRACING : 11/06/2017 19.15 Compared to previous tracing, DOCTOR: Dino Rutherford Interpretating Date/Time 12/26/2017 21:00:58
[2017-12-26] MEDS: Ferrous Sulfate 325 MG Tablet PO SCH (21:54)
[2017-12-26 22:28] LABS: Hematocrit 22.4 % (35.0-46.0); Hemoglobin 7.1 gm/dL (11.6-15.3); INR 1.1 Ratio; Prothrombin Time 10.7 sec (9.8-11.6)
[2017-12-27] MEDS ORDERED: Sodium Chlor 0.9% Inj 250 ML IV.SIG ONE (04:00)
[2017-12-27] MEDS: Levothyroxine 100 MCG Tablet PO SCH (06:37)
[2017-12-27] MEDS ORDERED: Potassium Chloride 8 MEQ ER Capsule PO SCH (09:00)
[2017-12-27] MEDS ORDERED: Furosemide 40 MG Tablet PO SCH (09:00)
[2017-12-27] MEDS: Insulin NovoLOG Aspart Correctional Sugar Inj SQ SCH ×4 (09:17→21:24)
[2017-12-27 09:24] LABS: Baso # (Auto) 0.1 th/mm3 (0.0-0.2); Baso % (Auto) 0.8 % (0.0-2.0); Eos # (Auto) 0.4 th/mm3 (0.0-0.4); Eos % (Auto) 3.6 % (0.0-4.0); Hemoglobin 8.7 gm/dL (11.6-15.3); Lymph # (Auto) 1.8 th/mm3 (1.0-4.8); Lymph % (Auto) 18.4 % (9.0-44.0); Mean Corpuscular HGB Conc 33.4 % (32.0-36.0); Mean Corpuscular Hemoglobin 27.9 pg (27.0-34.0); Mean Corpuscular Volume 83.6 fL (80.0-100.0); Mean Platelet Volume 8.6 fL (7.0-11.0); Mono # (Auto) 1.1 th/mm3 (0.0-0.9); Mono % (Auto) 11.1 % (0.0-8.0); Neut # (Auto) 6.4 th/mm3 (1.8-7.7); Neut % (Auto) 66.1 % (16.0-70.0); Platelet Count 172 th/mm3 (150-450); Red Blood Count 3.11 mil/mm3 (4.00-5.30); Red Cell Distribution Width 16.4 % (11.6-17.2); White Blood Count 9.7 th/mm3 (4.0-11.0)
[2017-12-27] MEDS: Furosemide 40 MG Tablet PO SCH (09:31)
[2017-12-27] MEDS: Nadolol 20 MG Tablet PO SCH (09:32)
[2017-12-27 10:20] LABS: Calcium 8.8 mg/dL (8.5-10.1); Carbon Dioxide 25.1 meq/L (21.0-32.0)
[2017-12-27] MEDS ORDERED: Chlorhexidine Gluconate 2% 1 Pack (2 Cloths) TOPICAL SCH (10:30)
[2017-12-27] MEDS ORDERED: Metoprolol Tartrate 25 MG Tablet PO SCH (10:30)
[2017-12-27 10:35] LABS: Potassium 5.5 meq/L (3.5-5.1)
[2017-12-27] MEDS ORDERED: Sodium Chlor 0.9% Inj 500 ML IV.SIG SCH (11:00)
[2017-12-27] MEDS ORDERED: Succinylcholine Inj 100 MG/5 ML Syringe IV.PUSH ONE (12:39)
[2017-12-27] MEDS ORDERED: Lidocaine PF 1% Inj 5 ML Syringe INFILTRATN ONE (12:39)
--- NOTE | 2017-12-27 12:47 | GIPROC ---
[facility] [address] [facility] [place] [address] EGD PROCEDURE REPORT EXAM DATE: 12/27/2017 PATIENT NAME: Karly Hickey MR #: [id number] BIRTHDATE: 1930 ATTENDING: Dee Monk MD ORDER #: [id number] DETENTION ATTENDANT: Farzaneh Kilgore and Dunia Quigley STATUS: inpatient INDICATIONS: The patient is a 87 yr old female here for an EGD due to acute post hemorrhagic anemia and nausea PROCEDURE PERFORMED: EGD, diagnostic MEDICATIONS: None and Per Anesthesia. TOPICAL ANESTHETIC: CONSENT: The patient understands the risks and benefits of the procedure and understands that these risks include, but are not limited to: sedation, allergic reaction, infection, perforation and/or bleeding. Alternative means of evaluation and treatment include, among others: physical exam, x-rays, and/or surgical intervention. The patient elects to proceed with this endoscopic procedure. medical equipment was checked for proper function. Hand hygiene and appropriate measures for infection prevention was taken. After the risks, benefits and alternatives of the procedure were thoroughly explained, Informed consent was verified, confirmed and timeout was successfully executed by the treatment team. The patient was anesthetized with topical anesthesia and the Pentax [id number] endoscope was introduced through the mouth and advanced to the second portion of the duodenum. Retroflexed views revealed no abnormalities The gastroscope was then slowly withdrawn and removed. ESOPHAGUS: There was LA Class A esophagitis noted. STOMACH: There was erythematous severe and erosive gastritis in the gastric antrum. DUODENUM: The duodenal mucosa appeared normal in the bulb and second portion of the duodenum. ADVERSE EVENTS: There were no complications. IMPRESSIONS: 1. There was LA Class A esophagitis noted 2. There was erythematous gastritis in the gastric antrum 3. Normal duodenal mucosa in the bulb and second portion of the duodenum 4. Retroflexed views revealed no abnormalities RECOMMENDATIONS: 1. Anti-reflux regimen 2. Continue PPI 3. Avoid NSAIDS PATIENT CONDITION: stable DISPOSITION: Inpatient REPEAT EXAM: Return as needed for EGD Dee Monk MD eSigned: Dee Monk MD 12/27/2017 12:46 PM cc: PATIENT NAME: Karly Hickey MR#: [id number]
--- NOTE | 2017-12-27 12:52 | P.PNIM ---
Subjective Interval history: Follow up: GI bleed patient reports feeling better today after the blood S/P EGD today, patient refusing colonoscopy Physical Exam Vital signs: Vital Signs 12/26/17 13:30 12/26/17 16:00 12/26/17 20:00 Temperature 98.0 F 98.5 F Pulse Rate 88 85 91 H Respiratory Rate 16 12 18 Blood Pressure 171/61 H 163/68 H 156/67 H Pulse Oximetry 95 95 12/26/17 21:34 12/27/17 00:00 12/27/17 00:05 Temperature 98.5 F Pulse Rate 84 99 H 97 H Respiratory Rate 16 Blood Pressure 113/53 L Pulse Oximetry 95 12/27/17 04:00 12/27/17 04:15 12/27/17 04:18 Temperature 98.9 F 99.1 F Pulse Rate 98 H 102 H 101 H Respiratory Rate 18 18 Blood Pressure 120/56 L 131/59 L Pulse Oximetry 98 96 12/27/17 04:32 12/27/17 08:00 Temperature 98.9 F 97.8 F Pulse Rate 98 H 98 H Respiratory Rate 16 18 Blood Pressure 120/56 L 131/61 Pulse Oximetry 98 95 Intake & Output 12/26/17 12/27/17 12/27/17 18:59 06:59 18:59 Intake Total 100 / 100 0 / 0 Balance 100 / 100 0 / 0 Weight 77.111 kg 76.6 kg Intake: IV 100 / 100 Protonix Inj 80 MG In NS Inj 35 100 / 100 ML @ 420 mls/hr IV.SIG BOLUS ONE Rx#:[id number] Intake (Blood Product) Amt 0 / 0 Rbc As-3 Leukoreduced Unit 0 / 0 [id number] Other: # Voids 1 Date of Last Bowel Movement 12/27/17 Narrative: GENERAL: This is a well-nourished, well-developed patient, in no apparent distress. CARDIOVASCULAR: Regular rate and rhythm 4/6 systolic murmur RESPIRATORY: Clear to auscultation. Breath sounds equal bilaterally. No wheezes , rales, or rhonchi. GASTROINTESTINAL: Abdomen soft, non-tender, nondistended. Normal active bowel sounds MUSCULOSKELETAL: Extremities without clubbing, cyanosis, or edema. NEURO: Alert & Oriented x4 to person, place, time, situation. Moves all ext x4 Results - Labs CBC & Chem 7: 12/28/17 07:59 12/27/17 13:53 Laboratory Results - last 24 hr 12/26/17 12/26/17 12/26/17 09:42 13:59 16:38 WBC RBC Hgb Hct MCV MCH MCHC RDW Plt Count MPV Neut % (Auto) Lymph % (Auto) [place] % (Auto) Eos % (Auto) Baso % (Auto) Neut # (Auto) Lymph # (Auto) [place] # (Auto) Eos # (Auto) Baso # (Auto) WBC Differential Differential Comment PT INR Sodium Potassium Chloride Carbon Dioxide Anion Gap BUN Creatinine Estimated GFR POC Glucose 344 H Random Glucose Calcium Blood Type O Positive Antibody Screen Negative MTS Gel Crossmatch See Detail 12/26/17 12/26/17 12/26/17 21:28 21:28 21:58 WBC RBC Hgb 7.1 L Hct 22.4 L MCV MCH MCHC RDW Plt Count MPV Neut % (Auto) Lymph % (Auto) [place] % (Auto) Eos % (Auto) Baso % (Auto) Neut # (Auto) Lymph # (Auto) [place] # (Auto) Eos # (Auto) Baso # (Auto) WBC Differential Differential Comment PT 10.7 INR 1.1 Sodium Potassium Chloride Carbon Dioxide Anion Gap BUN Creatinine Estimated GFR POC Glucose 268 H Random Glucose Calcium Blood Type Antibody Screen MTS Gel Crossmatch 12/27/17 12/27/17 12/27/17 04:01 09:10 09:10 WBC 9.7 RBC 3.11 L Hgb 8.7 L Hct 26.0 L MCV 83.6 MCH 27.9 MCHC 33.4 RDW 16.4 Plt Count 172 MPV 8.6 Neut % (Auto) 66.1 Lymph % (Auto) 18.4 [place] % (Auto) 11.1 H Eos % (Auto) 3.6 Baso % (Auto) 0.8 Neut # (Auto) 6.4 Lymph # (Auto) 1.8 [place] # (Auto) 1.1 H Eos # (Auto) 0.4 Baso # (Auto) 0.1 WBC Differential . Differential Comment Auto diff final PT INR Sodium 135 L Potassium 5.5 H D Chloride 102 Carbon Dioxide 25.1 Anion Gap 8 BUN 26 H Creatinine 1.32 H Estimated GFR 38 L POC Glucose Random Glucose 274 H Calcium 8.8 Blood Type Antibody Screen MTS Gel Crossmatch See Detail 12/27/17 09:10 WBC RBC Hgb Hct MCV MCH MCHC RDW Plt Count MPV Neut % (Auto) Lymph % (Auto) [place] % (Auto) Eos % (Auto) Baso % (Auto) Neut # (Auto) Lymph # (Auto) [place] # (Auto) Eos # (Auto) Baso # (Auto) WBC Differential Differential Comment PT INR Sodium Potassium Chloride Carbon Dioxide Anion Gap BUN Creatinine Estimated GFR POC Glucose 297 H Random Glucose Calcium Blood Type Antibody Screen MTS Gel Crossmatch Assessment and Plan - Assessment (1) GI bleed Code(s): K92.2 - Gastrointestinal hemorrhage, unspecified Status: Acute Plan: Mechanical fall -with laceration repaired in ER -This is an 87-year-old female patient with past medical history which includes anemia, gastric ulcer and gastritis, COPD, hypertension, chronic kidney disease stage III, hypothyroidism, type 2 diabetes, 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 Patient initially presented to the emergency department for evaluation of a 25 cm laceration to her right lower leg after she sustained a mechanical fall just prior to arrival. -Knee X-Ray 12/26/17 11:16 CONCLUSION: No evidence of recent bony injury. -Tibia/Fibula X-Ray 12/26/17 11:16 CONCLUSION: No evidence of recent bony injury. -consult PT -consult to case management patient will likely need SNF at time of DC Anemia secondary to GI bleed -Patient also has a history of gastric ulcers and gastritis -Patient found to have a hemoglobin of 7.8 with a positive Hemoccult stool emergency department -Review of outpatient records patient had a hemoglobin of 11.5 on November 13, 2017 and patient hemoglobin trends between 10 and 11 -Patient also endorses dark tarry stools for the past 1-2 weeks. -Consult GI -IVF -Protonix IV -ER ordered 2 units PRBCs -serial hemoglobin -clear liquids now then NPO after midnight -Cardiac murmur Echocardiogram 10/24/17: The left ventricular systolic function is normal with an estimated ejection fraction in the range of 60-65%. Mild concentric left ventricular hypertrophy. Normal left ventricular size. The left atrial size is mildly dilated. Calcification of both mitral valve leaflets. Mitral annular calcification is present. [id number] mitral valve regurgitation. Mild mitral valve stenosis. Mitral valve mean gradient is 7 mmHg. The mitral valve area by Pressure Halftime Method is 1.75 cm. Diffuse calcification of the aortic valve. Mild aortic valve stenosis. Aortic valve area is 1.2 cm. Aortic valve mean gradient is 20 mmHg. There is mild to moderate tricuspid valve regurgitation. The estimated pulmonary arterial pressure is 68.7 mmHg. - hgb on admission 7.8 -> (12/26 2128) 7.1 -> (12/27 ) 8.7 - 2 units PRBCs ordered 12/26 at 1359, but only one unit given 12/26 0348 and one unit transfusing now - patient refused colonoscopy - S/P EGD 12/27/[address] Monk IMPRESSIONS: 1. There was LA Class A esophagitis noted 2. There was erythematous gastritis in the gastric antrum 3. Normal duodenal mucosa in the bulb and second portion of the duodenum 4. Retroflexed views revealed no abnormalities GI RECOMMENDATIONS: 1. Anti-reflux regimen 2. Continue PPI 3. Avoid NSAIDS - (12/27) case discussed with patient's sister Ms Zenia Melton over the phone per patient's request. Patient's sister agrees with the patient's decision to not have colonoscopy at this time. - repeat CBC in AM COPD -not in acute exacerbation -does not take inhalers or nebs at home -Duonebs if needed HTN -Resume patient's home Nadolol 20 mg PO daily -Monitor BP CKD stage III -avoid nephrotoxic agents Hypothyroidism -continue patient's home Levothyroxine 100 mcg daily DM type 2 -Patient takes Tresiba 30 Units at home daily - will hold at this time as patient will be NPO -accu checks ACHS with SSI coverage Hyperkalemia -Potassium 5.5 on labs this AM 12/27 also blood hemolyzed -recheck potassium 4.5 -DVT prophylaxis with SCDs avoid chemical DVT prophylaxis due to GI bleed If stable plan to DC to SNF tomorrow - Attending Attestation Patient examined. Assessment and plan formulated with Merary Novak PA-C. I agree with the above. (1) GI bleed Qualifiers: GI bleed type/associated pathology: unspecified gastrointestinal hemorrhage type Qualified Code(s): K92.2 - Gastrointestinal hemorrhage, unspecified
[2017-12-27] MEDS ORDERED: Pantoprazole Inj 40 MG Vial IV.PUSH SCH (14:00)
[2017-12-27] MEDS: Docusate Sodium 100 MG Capsule PO SCH (14:52)
[2017-12-27] MEDS: Ferrous Sulfate 325 MG Tablet PO SCH ×2 (14:53→21:11)
--- NOTE | 2017-12-27 15:17 | P.DS ---
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 Patient initially presented to the emergency department for evaluation of a 25 cm laceration to her right lower leg after she sustained a mechanical fall just prior to arrival. Patient was walking when she tripped landing on her right knee and lower leg. Patient appears to be a poor historian family members at bedside helping to elaborate. She states that she has been weak/dizzy for months, she also reports chronic weakness. Family is at bedside and corroborates this. Patient denies any chest pain or shortness of breath prior to falling. She did not eaten breakfast because she was n.p.o. for an outpatient ultrasound of her liver. She reports pain in her leg is a 2 out of 10, aching. Pain is constant. Pain is worse with movement. Pain is somewhat alleviated with rest. Patient's tetanus vaccine is not up-to- date. Patient denies head injury or loss of consciousness. Patient also denies fevers, chills, nausea, vomiting, shortness of breath or chest pain. Knee X-Ray 12/26/17 11:16 CONCLUSION: No evidence of recent bony injury. Tibia/Fibula X-Ray 12/26/17 11:16 CONCLUSION: No evidence of recent bony injury. Patient found to have a hemoglobin of 7.8 with a positive Hemoccult stool emergency department Review of outpatient records patient had a hemoglobin of 11.5 on November 13, 2017 and patient hemoglobin trends between 10 and 11 Patient also endorses dark tarry stools for the past 1-2 weeks. 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 PAST SURGICAL HISTORY: Includes appendectomy, rhinoplasty, total abdominal hysterectomy and BSO. She has had a cervical fusion. She has had bilateral cataract surgery. She has had colonoscopy showing polyps and diverticulosis. As stated, she has had the left nephrectomy. She did have in May an endoscopy showing a bleeding angiodysplastic lesion in the H gastric atrium. SOCIAL HISTORY: She is and lives alone. She is independent in her activities of daily living. She lost her approximately 15 years ago. She stopped smoking over 20 years ago. She denies alcohol consumption. 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 Patient initially presented to the emergency department for evaluation of a 25 cm laceration to her right lower leg after she sustained a mechanical fall just prior to arrival. -Knee X-Ray 12/26/17 11:16 CONCLUSION: No evidence of recent bony injury. -Tibia/Fibula X-Ray 12/26/17 11:16 CONCLUSION: No evidence of recent bony injury. -consult PT -consult to case management patient will likely need SNF at time of DC Anemia secondary to GI bleed -Patient also has a history of gastric ulcers and gastritis -Patient found to have a hemoglobin of 7.8 with a positive Hemoccult stool emergency department -Review of outpatient records patient had a hemoglobin of 11.5 on November 13, 2017 and patient hemoglobin trends between 10 and 11 -Patient also endorses dark tarry stools for the past 1-2 weeks. -Consult GI -IVF -Protonix IV -ER ordered 2 units PRBCs -serial hemoglobin -clear liquids now then NPO after midnight -Cardiac murmur Echocardiogram 10/24/17: The left ventricular systolic function is normal with an estimated ejection fraction in the range of 60-65%. Mild concentric left ventricular hypertrophy. Normal left ventricular size. The left atrial size is mildly dilated. Calcification of both mitral valve leaflets. Mitral annular calcification is present. Tibsq-ki-heif mitral valve regurgitation. Mild mitral valve stenosis. Mitral valve mean gradient is 7 mmHg. The mitral valve area by Pressure Halftime Method is 1.75 cm. Diffuse calcification of the aortic valve. Mild aortic valve stenosis. Aortic valve area is 1.2 cm. Aortic valve mean gradient is 20 mmHg. There is mild to moderate tricuspid valve regurgitation. The estimated pulmonary arterial pressure is 68.7 mmHg. - hgb on admission 7.8 -> (12/27 2127) 7.1 -> (12/27 ) 8.7 -> (12/28) 8.6 - 2 units PRBCs ordered 12/26 at 1359, but only one unit given 12/26 0348 and one unit transfusing now - patient refused colonoscopy - S/P EGD 12/27/[address] Monk IMPRESSIONS: 1. There was LA Class A esophagitis noted 2. There was erythematous gastritis in the gastric antrum 3. Normal duodenal mucosa in the bulb and second portion of the duodenum 4. Retroflexed views revealed no abnormalities GI RECOMMENDATIONS: 1. Anti-reflux regimen 2. Continue PPI 3. Avoid NSAIDS - (12/27) case discussed with patient's sister Ms Zenia Melton over the phone per patient's request. Patient's sister agrees with the patient's decision to not have colonoscopy at this time. - repeat CBC 12/28 hgb 8.6 COPD -not in acute exacerbation -does not take inhalers or nebs at home -Duonebs if needed HTN -Resume patient's home Nadolol 20 mg PO daily -Monitor BP CKD stage III -avoid nephrotoxic agents Hypothyroidism -continue patient's home Levothyroxine 100 mcg daily DM type 2 -Patient takes Tresiba 30 Units at home daily - will hold at this time as patient will be NPO -accu checks ACHS with SSI coverage Hyperkalemia -Potassium 5.5 on labs this AM 12/27 also blood hemolyzed -recheck potassium 4.5 -DVT prophylaxis with SCDs avoid chemical DVT prophylaxis due to GI bleed - DC to SNF 12/29 AM - Time Spent with Patient Total time spent providing and/or coordinating discharge services: Greater than 30 minutes - Quality: VTE Deep Vein Thrombosis/Pulmonary Embolism Present on Admission: No Exam Vital signs: Vital Signs 12/26/17 16:00 12/26/17 20:00 12/26/17 21:34 Temperature 98.0 F 98.5 F Pulse Rate 85 91 H 84 Respiratory Rate 12 18 Blood Pressure 163/68 H 156/67 H Pulse Oximetry 95 12/27/17 00:00 12/27/17 00:05 12/27/17 04:00 Temperature 98.5 F 98.9 F Pulse Rate 99 H 97 H 98 H Respiratory Rate 16 18 Blood Pressure 113/53 L 120/56 L Pulse Oximetry 95 98 12/27/17 04:15 12/27/17 04:18 12/27/17 04:32 Temperature 99.1 F 98.9 F Pulse Rate 102 H 101 H 98 H Respiratory Rate 18 16 Blood Pressure 131/59 L 120/56 L Pulse Oximetry 96 98 12/27/17 08:00 12/27/17 12:52 12/27/17 13:05 Temperature 97.8 F 98.4 F 98.4 F Pulse Rate 98 H 71 68 Respiratory Rate 18 16 16 Blood Pressure 131/61 121/56 L 121/54 L Pulse Oximetry 95 95 94 L Intake & Output 12/26/17 12/27/17 12/27/17 18:59 06:59 18:59 Intake Total 100 / 100 0 / 0 Balance 100 / 100 0 / 0 Weight 77.111 kg 76.6 kg Intake: IV 100 / 100 Protonix Inj 80 MG In NS Inj 35 100 / 100 ML @ 420 mls/hr IV.SIG BOLUS ONE Rx#:[id number] Intake (Blood Product) Amt 0 / 0 Rbc As-3 Leukoreduced Unit 0 / 0 [id number] Other: # Voids 1 5 Date of Last Bowel Movement 12/27/17 Narrative: GENERAL: This is a well-nourished, well-developed patient, in no apparent distress. CARDIOVASCULAR: Regular rate and rhythm 4/6 systolic murmur RESPIRATORY: Clear to auscultation. Breath sounds equal bilaterally. No wheezes , rales, or rhonchi. GASTROINTESTINAL: Abdomen soft, non-tender, nondistended. Normal active bowel sounds MUSCULOSKELETAL: Extremities without clubbing, cyanosis, or edema. NEURO: Alert & Oriented. Moves all ext x4 Results Procedures completed during hospitalization: 12/[address] Monk Labs on day of discharge: Labs from last 24 hours 12/27/17 12/27/1718 13:53 12:56 09:10 WBC RBC Hgb Hct MCV MCH MCHC RDW Plt Count MPV Neut % (Auto) Lymph % (Auto) Cross % (Auto) Eos % (Auto) Baso % (Auto) Neut # (Auto) Lymph # (Auto) Cross # (Auto) Eos # (Auto) Baso # (Auto) WBC Differential Differential Comment PT INR Sodium Potassium 4.5 D Chloride Carbon Dioxide Anion Gap BUN Creatinine Estimated GFR POC Glucose 185 H 297 H Random Glucose Calcium MTS Gel Crossmatch 12/27/17 12/27/17 12/27/17 09:10 09:10 04:01 WBC 9.7 RBC 3.11 L Hgb 8.7 L Hct 26.0 L MCV 83.6 MCH 27.9 MCHC 33.4 RDW 16.4 Plt Count 172 MPV 8.6 Neut % (Auto) 66.1 Lymph % (Auto) 18.4 Cross % (Auto) 11.1 H Eos % (Auto) 3.6 Baso % (Auto) 0.8 Neut # (Auto) 6.4 Lymph # (Auto) 1.8 Cross # (Auto) 1.1 H Eos # (Auto) 0.4 Baso # (Auto) 0.1 WBC Differential . Differential Comment Auto diff final PT INR Sodium 135 L Potassium 5.5 H D Chloride 102 Carbon Dioxide 25.1 Anion Gap 8 BUN 26 H Creatinine 1.32 H Estimated GFR 38 L POC Glucose Random Glucose 274 H Calcium 8.8 MTS Gel Crossmatch See Detail 12/26/17 12/26/17 12/26/17 21:58 21:28 21:28 WBC RBC Hgb 7.1 L Hct 22.4 L MCV MCH MCHC RDW Plt Count MPV Neut % (Auto) Lymph % (Auto) Cross % (Auto) Eos % (Auto) Baso % (Auto) Neut # (Auto) Lymph # (Auto) Cross # (Auto) Eos # (Auto) Baso # (Auto) WBC Differential Differential Comment PT 10.7 INR 1.1 Sodium Potassium Chloride Carbon Dioxide Anion Gap BUN Creatinine Estimated GFR POC Glucose 268 H Random Glucose Calcium MTS Gel Crossmatch 12/26/17 12/26/17 16:38 13:59 WBC RBC Hgb Hct MCV MCH MCHC RDW Plt Count MPV Neut % (Auto) Lymph % (Auto) Cross % (Auto) Eos % (Auto) Baso % (Auto) Neut # (Auto) Lymph # (Auto) Cross # (Auto) Eos # (Auto) Baso # (Auto) WBC Differential Differential Comment PT INR Sodium Potassium Chloride Carbon Dioxide Anion Gap BUN Creatinine Estimated GFR POC Glucose 344 H Random Glucose Calcium MTS Gel Crossmatch See Detail - Impressions ITS Impressions Knee X-Ray 12/26/17 11:16 CONCLUSION: No evidence of recent bony injury. Tibia/Fibula X-Ray 12/26/17 11:16 CONCLUSION: No evidence of recent bony injury. <Lele Rosas - Last Filed: 12/30/17 16:00> Date of admission: 12/26/17 13:22 Primary care physician: Roe Hernandez MD DS: Diagnosis - Discharge Diagnosis (1) GI bleed Status: Acute DS: Summary Hospital Course: Patient examined. Assessment and plan formulated with Merary Novak PA-C. I agree with the above. - Time Spent with Patient Total time spent providing and/or coordinating discharge services: Greater than 30 minutes Exam Vital signs: Intake & Output 12/29/17 12/30/17 12/30/17 18:59 06:59 18:59 Other: Date of Last Bowel Movement 12/28/17 Results - Impressions ITS Impressions Knee X-Ray 12/26/17 11:16 CONCLUSION: No evidence of recent bony injury. Tibia/Fibula X-Ray 12/26/17 11:16 CONCLUSION: No evidence of recent bony injury. Discharge Plan - Discharge Order Discharge Orders: Discharge Order (Routine); Ordered 12/29/17 Ordered By: Merary Novak - Discharge Details Anticipated Discharge Date: 12/29/17 - Physicians Team Primary Care Provider: Roe Hernandez Attending Provider: Lele Rosas Other Providers: Dee Monk MD ; [facility],Agency
[2017-12-28] MEDS: Levothyroxine 100 MCG Tablet PO SCH (05:32)
[2017-12-28 09:32] LABS: Baso # (Auto) 0.1 th/mm3 (0.0-0.2); Baso % (Auto) 0.8 % (0.0-2.0); Eos # (Auto) 0.6 th/mm3 (0.0-0.4); Eos % (Auto) 5.8 % (0.0-4.0); Hematocrit 26.4 % (35.0-46.0); Hemoglobin 8.6 gm/dL (11.6-15.3); Lymph # (Auto) 2.1 th/mm3 (1.0-4.8); Lymph % (Auto) 19.2 % (9.0-44.0); Mean Corpuscular HGB Conc 32.8 % (32.0-36.0); Mean Corpuscular Hemoglobin 27.5 pg (27.0-34.0); Mean Platelet Volume 8.6 fL (7.0-11.0); Mono # (Auto) 1.3 th/mm3 (0.0-0.9); Mono % (Auto) 12.4 % (0.0-8.0); Neut # (Auto) 6.7 th/mm3 (1.8-7.7); Neut % (Auto) 61.8 % (16.0-70.0); Platelet Count 182 th/mm3 (150-450); Red Blood Count 3.14 mil/mm3 (4.00-5.30); Red Cell Distribution Width 16.6 % (11.6-17.2); White Blood Count 10.8 th/mm3 (4.0-11.0)
[2017-12-28] MEDS: Ferrous Sulfate 325 MG Tablet PO SCH ×2 (09:34→21:27)
[2017-12-28] MEDS: Docusate Sodium 100 MG Capsule PO SCH (09:34)
[2017-12-28] MEDS: Furosemide 40 MG Tablet PO SCH (09:34)
[2017-12-28] MEDS: Insulin NovoLOG Aspart Correctional Sugar Inj SQ SCH ×4 (09:35→21:27)
[2017-12-28] MEDS: Nadolol 20 MG Tablet PO SCH (09:35)
--- NOTE | 2017-12-28 13:37 | P.PNGI ---
Subjective Interval history: Pt in bedside chair, reports some nausea and burping today, is tolerating PO. Having black BMs but this is chronic secondary to her iron supplements. <Daphne Howard - Last Filed: 12/28/17 13:34> Physical Exam Vital signs: Vital Signs 12/27/17 16:00 12/27/17 19:54 12/27/17 20:50 Temperature 97.6 F 98 F Pulse Rate 69 83 88 Respiratory Rate 18 18 Blood Pressure 119/59 L 125/60 Pulse Oximetry 96 96 12/28/17 00:00 12/28/17 04:00 12/28/17 05:53 Temperature 97.7 F 98.2 F Pulse Rate 78 78 78 Respiratory Rate 19 18 Blood Pressure 125/65 127/66 Pulse Oximetry 97 98 12/28/17 08:00 12/28/17 09:00 12/28/17 12:00 Temperature 97.2 F L 97.3 F L Pulse Rate 74 74 70 Respiratory Rate 16 Blood Pressure 127/51 L 108/52 L Pulse Oximetry 94 L 95 Intake & Output 12/27/17 12/28/17 12/28/17 18:59 06:59 18:59 Intake Total 400 / 400 1200 / 1200 0 / 0 Balance 400 / 400 1200 / 1200 0 / 0 Weight 76.6 kg Intake: IV 0 / 0 Oral 1200 / 1200 Intake (Blood Product) Amt 400 / 400 Rbc As-3 Leukoreduced Unit 400 / 400 [id number] Other: # Voids 5 6 1 Date of Last Bowel Movement 12/27/17 12/27/17 12/27/17 # Bowel Movements 1 1 - Constitutional no acute distress - Routine HEENT Exam Head: Present: normocephalic, atraumatic - Routine Respiratory Exam Absent: accessory muscle use - Routine Abdominal Exam Present: soft, normoactive bowel sounds. Absent: tenderness, distended - Routine Skin Exam Present: dry, warm - Routine Neurological Exam Present: alert, oriented X3 <Daphne Howard - Last Filed: 12/28/17 13:34> Vital signs: Vital Signs 12/27/17 19:54 12/27/17 20:50 12/28/17 00:00 Temperature 98 F 97.7 F Pulse Rate 83 88 78 Respiratory Rate 18 19 Blood Pressure 125/60 125/65 Pulse Oximetry 96 97 12/28/17 04:00 12/28/17 05:53 12/28/17 08:00 Temperature 98.2 F 97.2 F L Pulse Rate 78 78 74 Respiratory Rate 18 Blood Pressure 127/66 127/51 L Pulse Oximetry 98 94 L 12/28/17 09:00 12/28/17 12:00 Temperature 97.3 F L Pulse Rate 74 70 Respiratory Rate 16 Blood Pressure 108/52 L Pulse Oximetry 95 Intake & Output 12/27/17 12/28/17 12/28/17 18:59 06:59 18:59 Intake Total 400 / 400 1200 / 1200 0 / 0 Balance 400 / 400 1200 / 1200 0 / 0 Weight 76.6 kg Intake: IV 0 / 0 Oral 1200 / 1200 Intake (Blood Product) Amt 400 / 400 Rbc As-3 Leukoreduced Unit 400 / 400 [id number] Other: # Voids 5 6 1 Date of Last Bowel Movement 12/27/17 12/27/17 12/27/17 # Bowel Movements 1 1 <Dee Monk - Last Filed: 12/28/17 17:13> Results - Labs CBC & Chem 7: 12/28/17 07:59 12/27/17 13:53 Laboratory Results - last 24 hr 12/26/17 12/27/17 12/27/17 13:59 13:53 17:31 WBC RBC Hgb Hct MCV MCH MCHC RDW Plt Count MPV Neut % (Auto) Lymph % (Auto) Sherman % (Auto) Eos % (Auto) Baso % (Auto) Neut # (Auto) Lymph # (Auto) Sherman # (Auto) Eos # (Auto) Baso # (Auto) WBC Differential Differential Comment Potassium 4.5 D POC Glucose 149 H MTS Gel Crossmatch See Detail 12/27/17 12/28/17 12/28/17 21:11 07:59 09:29 WBC 10.8 RBC 3.14 L Hgb 8.6 L Hct 26.4 L MCV 84.0 MCH 27.5 MCHC 32.8 RDW 16.6 Plt Count 182 MPV 8.6 Neut % (Auto) 61.8 Lymph % (Auto) 19.2 Sherman % (Auto) 12.4 H Eos % (Auto) 5.8 H Baso % (Auto) 0.8 Neut # (Auto) 6.7 Lymph # (Auto) 2.1 Sherman # (Auto) 1.3 H Eos # (Auto) 0.6 H Baso # (Auto) 0.1 WBC Differential . Differential Comment Auto diff final Potassium POC Glucose 367 H 314 H MTS Gel Crossmatch 12/28/17 12:53 WBC RBC Hgb Hct MCV MCH MCHC RDW Plt Count MPV Neut % (Auto) Lymph % (Auto) Sherman % (Auto) Eos % (Auto) Baso % (Auto) Neut # (Auto) Lymph # (Auto) Sherman # (Auto) Eos # (Auto) Baso # (Auto) WBC Differential Differential Comment Potassium POC Glucose 151 H MTS Gel Crossmatch - Procedures 12/[address] Monk <Daphne Howard - Last Filed: 12/28/17 13:34> - Labs CBC & Chem 7: 12/28/17 07:59 12/27/17 13:53 Laboratory Results - last 24 hr 12/27/17 12/27/17 12/28/17 17:31 21:11 07:59 WBC 10.8 RBC 3.14 L Hgb 8.6 L Hct 26.4 L MCV 84.0 MCH 27.5 MCHC 32.8 RDW 16.6 Plt Count 182 MPV 8.6 Neut % (Auto) 61.8 Lymph % (Auto) 19.2 Sherman % (Auto) 12.4 H Eos % (Auto) 5.8 H Baso % (Auto) 0.8 Neut # (Auto) 6.7 Lymph # (Auto) 2.1 Sherman # (Auto) 1.3 H Eos # (Auto) 0.6 H Baso # (Auto) 0.1 WBC Differential . Differential Comment Auto diff final POC Glucose 149 H 367 H 12/28/17 12/28/17 12/28/17 09:29 12:53 16:34 WBC RBC Hgb Hct MCV MCH MCHC RDW Plt Count MPV Neut % (Auto) Lymph % (Auto) Sherman % (Auto) Eos % (Auto) Baso % (Auto) Neut # (Auto) Lymph # (Auto) Sherman # (Auto) Eos # (Auto) Baso # (Auto) WBC Differential Differential Comment POC Glucose 314 H 151 H 204 H <Dee Monk - Last Filed: 12/28/17 17:13> Assessment and Plan - Plan Assessment: - Anemia with Hemoccult positive stools History of GIB. Pt reports black stools, states this has been going on a long time, she is on iron supplements. Denies any noticeable change in consistency or frequency of stools. Reports constipation, takes laxatives OTC when needed. Complaining of nausea, denies emesis. Also complaining of epigastric pain, dull, intermittent, worse over the past few days. 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 Colonoscopy Feb 2017 --> Polyps in ascending, transverse, descending and sigmoid colon. Multiple, ranging in size from 5-15 mm. Mild diverticulosis in the left colon. Internal hemorrhoids. Pathology (transverse colon) tubular adenoma (ascending colon) tubular adenoma (fragments of) (descending colon) inflammatory polyp. 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 Followed by Dr. Larios, she was sent for repeat labs and US liver which she states she did this morning. Hypoalbuminemia- albumin 2.8. No thrombocytopenia, will check for coagulopathy (12/28) Pt refused colonoscopy, only EGD was done. H/H stable overnight. Still having black stools, chronic secondary to her iron supplements. Discussed with Dr. Rosas, planning on DC to rehab today. EGD --> Class A esophagitis, erythematous gastritis in the gastric antrum, normal duodenal mucosa in the bulb and second portion of the duodenum. Plan: Recommend colonoscopy outpatient Continue Protonix Dr. Rosas planning to discharge pt to rehab today Have pt follow up with GI in the office Pt has been seen and examined by myself and Dr. Monk and this note is written on his behalf <Daphne Howard - Last Filed: 12/28/17 13:34> - Plan Seen and examined with GLOVE TURNER, no active gi bleeding reported. S/P egd, refused colonoscopy. GI fu upon dc please. Thank you The exam, history, and the medical decision-making described in the above note were completed with the assistance of the mid-level provider. I reviewed and agree with the findings presented. I attest that I had a [id number] encounter with the patient on the same day, and personally performed and documented my assessment and findings in the medical record. <Dee Monk - Last Filed: 12/28/17 17:13>
--- NOTE | 2017-12-28 14:18 | P.PNIM ---
Subjective Interval history: Patient reports burping after eating tolerating PO intake black stools, patient on iron supplementation Physical Exam Vital signs: Vital Signs 12/27/17 16:00 12/27/17 19:54 12/27/17 20:50 Temperature 97.6 F 98 F Pulse Rate 69 83 88 Respiratory Rate 18 18 Blood Pressure 119/59 L 125/60 Pulse Oximetry 96 96 12/28/17 00:00 12/28/17 04:00 12/28/17 05:53 Temperature 97.7 F 98.2 F Pulse Rate 78 78 78 Respiratory Rate 19 18 Blood Pressure 125/65 127/66 Pulse Oximetry 97 98 12/28/17 08:00 12/28/17 09:00 12/28/17 12:00 Temperature 97.2 F L 97.3 F L Pulse Rate 74 74 70 Respiratory Rate 16 Blood Pressure 127/51 L 108/52 L Pulse Oximetry 94 L 95 Intake & Output 12/27/17 12/28/17 12/28/17 18:59 06:59 18:59 Intake Total 400 / 400 1200 / 1200 0 / 0 Balance 400 / 400 1200 / 1200 0 / 0 Weight 76.6 kg Intake: IV 0 / 0 Oral 1200 / 1200 Intake (Blood Product) Amt 400 / 400 Rbc As-3 Leukoreduced Unit 400 / 400 [id number] Other: # Voids 5 6 1 Date of Last Bowel Movement 12/27/17 12/27/17 12/27/17 # Bowel Movements 1 1 Narrative: GENERAL: This is a well-nourished, well-developed patient, in no apparent distress. CARDIOVASCULAR: Regular rate and rhythm 4/6 systolic murmur RESPIRATORY: Clear to auscultation. Breath sounds equal bilaterally. No wheezes , rales, or rhonchi. GASTROINTESTINAL: Abdomen soft, non-tender, nondistended. Normal active bowel sounds MUSCULOSKELETAL: Extremities without clubbing, cyanosis, or edema. NEURO: Alert & Oriented x4 to person, place, time, situation. Moves all ext x4 Results - Labs CBC & Chem 7: 12/28/17 07:59 12/27/17 13:53 Laboratory Results - last 24 hr 12/26/17 12/27/17 12/27/17 13:59 13:53 17:31 WBC RBC Hgb Hct MCV MCH MCHC RDW Plt Count MPV Neut % (Auto) Lymph % (Auto) [place] % (Auto) Eos % (Auto) Baso % (Auto) Neut # (Auto) Lymph # (Auto) [place] # (Auto) Eos # (Auto) Baso # (Auto) WBC Differential Differential Comment Potassium 4.5 D POC Glucose 149 H MTS Gel Crossmatch See Detail 12/27/17 12/28/17 12/28/17 21:11 07:59 09:29 WBC 10.8 RBC 3.14 L Hgb 8.6 L Hct 26.4 L MCV 84.0 MCH 27.5 MCHC 32.8 RDW 16.6 Plt Count 182 MPV 8.6 Neut % (Auto) 61.8 Lymph % (Auto) 19.2 [place] % (Auto) 12.4 H Eos % (Auto) 5.8 H Baso % (Auto) 0.8 Neut # (Auto) 6.7 Lymph # (Auto) 2.1 [place] # (Auto) 1.3 H Eos # (Auto) 0.6 H Baso # (Auto) 0.1 WBC Differential . Differential Comment Auto diff final Potassium POC Glucose 367 H 314 H MTS Gel Crossmatch 12/28/17 12:53 WBC RBC Hgb Hct MCV MCH MCHC RDW Plt Count MPV Neut % (Auto) Lymph % (Auto) [place] % (Auto) Eos % (Auto) Baso % (Auto) Neut # (Auto) Lymph # (Auto) [place] # (Auto) Eos # (Auto) Baso # (Auto) WBC Differential Differential Comment Potassium POC Glucose 151 H MTS Gel Crossmatch - Procedures 12/[address] 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 Patient initially presented to the emergency department for evaluation of a 25 cm laceration to her right lower leg after she sustained a mechanical fall just prior to arrival. -Knee X-Ray 12/26/17 11:16 CONCLUSION: No evidence of recent bony injury. -Tibia/Fibula X-Ray 12/26/17 11:16 CONCLUSION: No evidence of recent bony injury. -consult PT -consult to case management patient will likely need SNF at time of DC Anemia secondary to GI bleed -Patient also has a history of gastric ulcers and gastritis -Patient found to have a hemoglobin of 7.8 with a positive Hemoccult stool emergency department -Review of outpatient records patient had a hemoglobin of 11.5 on November 13, 2017 and patient hemoglobin trends between 10 and 11 -Patient also endorses dark tarry stools for the past 1-2 weeks. -Consult GI -IVF -Protonix IV -ER ordered 2 units PRBCs -serial hemoglobin -clear liquids now then NPO after midnight -Cardiac murmur Echocardiogram 10/24/17: The left ventricular systolic function is normal with an estimated ejection fraction in the range of 60-65%. Mild concentric left ventricular hypertrophy. Normal left ventricular size. The left atrial size is mildly dilated. Calcification of both mitral valve leaflets. Mitral annular calcification is present. [id number] mitral valve regurgitation. Mild mitral valve stenosis. Mitral valve mean gradient is 7 mmHg. The mitral valve area by Pressure Halftime Method is 1.75 cm. Diffuse calcification of the aortic valve. Mild aortic valve stenosis. Aortic valve area is 1.2 cm. Aortic valve mean gradient is 20 mmHg. There is mild to moderate tricuspid valve regurgitation. The estimated pulmonary arterial pressure is 68.7 mmHg. - hgb on admission 7.8 -> (12/26 2128) 7.1 -> (12/27 ) 8.7 -> (12/28) 8.6 - 2 units PRBCs ordered 12/26 at 1359, but only one unit given 12/26 0348 and one unit transfusing now - patient refused colonoscopy - S/P EGD 12/27/[address] Monk IMPRESSIONS: 1. There was LA Class A esophagitis noted 2. There was erythematous gastritis in the gastric antrum 3. Normal duodenal mucosa in the bulb and second portion of the duodenum 4. Retroflexed views revealed no abnormalities GI RECOMMENDATIONS: 1. Anti-reflux regimen 2. Continue PPI 3. Avoid NSAIDS - (12/27) case discussed with patient's sister Ms Zenia Melton over the phone per patient's request. Patient's sister agrees with the patient's decision to not have colonoscopy at this time. - repeat CBC (12/28) reveals: hgb 8.6 COPD -not in acute exacerbation -does not take inhalers or nebs at home -Duonebs if needed HTN -Resume patient's home Nadolol 20 mg PO daily -Monitor BP CKD stage III -avoid nephrotoxic agents Hypothyroidism -continue patient's home Levothyroxine 100 mcg daily DM type 2 -Patient takes Tresiba 30 Units at home daily - will hold at this time as patient will be NPO -accu checks ACHS with SSI coverage Hyperkalemia -Potassium 5.5 on labs this AM 12/27 also blood hemolyzed -recheck potassium 4.5 -DVT prophylaxis with SCDs avoid chemical DVT prophylaxis due to GI bleed DC to SNF tomorrow AM - Attending Attestation Patient examined. Assessment and plan formulated with Merary Novak PA-C. I agree with the above. (1) GI bleed Qualifiers: GI bleed type/associated pathology: unspecified gastrointestinal hemorrhage type Qualified Code(s): K92.2 - Gastrointestinal hemorrhage, unspecified
--- NOTE | 2017-12-28 18:12 | P.PNWCN ---
Wound Care Nurse Consult Description: Received wound management consult from CALIXTO Novak for L great toe, R lower leg and Left wrist Communicated with: Rn Alannah fernandez and Doctor Recommendation: Please leave Versatel one dressing to L wrist in place for 7 days or change if dislodged May change gauze and rolled gauze cover dressings every 3 days or as needed if saturated or dislodged. Please cleanse RLE suture line with normal saline and pat dry. Change dressing to RLE wound daily with ABD pad, rolled gauze and RICK wrap. Leave Versatel one dressing in place to L great toe for 7 days or change if dislodged. May change gauze and tape cover dressing daily or PRN if dislodged or saturated.Cleanse wound to L great toe with normal saline and pat dry. Wound/Pressure Injury - Wound Right Lower Extremity Wound Assessment: Ongoing Wound Type: Laceration (Now well approximated with 29 sutures) Is This a Chronic Wound: No Requested from Provider a Wound Care Consult: Yes (Wound care saw patient today) Wound Bed Appearance: Sutures (29 sutures well approximated ) Surrounding Tissue Temperature: Cool Drainage Description: Serosanguinous Drainage Amount: Scant Drainage Odor: No Odor Dressing Status: Changed Cleansing Solution: Saline Primary Dressing: ABD pad Cover Dressing: Rolled gauze and RICK wrap Tape Type: Paper Wound Dressing Change Date: 12/28/17 Left Hand Wound Assessment: Ongoing Wound Type: Skin Tear Is This a Chronic Wound: No Requested from Provider a Wound Care Consult: Yes (Wound care saw patient) Wound Bed Appearance: [place] Wound Bed Appearance: Four small skin tears in close proximity to each other in a linear pattern .Skin tears are 100 % pink and partial thickness with loose skin flap to periwound. Surrounding Tissue Temperature: Cool Drainage Description: Serosanguinous Drainage Amount: Scant Drainage Odor: No Odor Dressing Status: Changed Cleansing Solution: Saline Primary Dressing: Versatel one Cover Dressing: gauze pads and rolled gauze Tape Type: Paper Wound Dressing Change Date: 12/28/17 Wound Margin Description: Jagged Left Great Toe Wound Assessment: Ongoing Wound Type: Laceration Is This a Chronic Wound: No Requested from Provider a Wound Care Consult: Yes (Wound care saw patient) Length: 0.3 (~0.3 cm) Width: 3 (~3 cm) Depth: 0.2 (~0.2 cm) Wound Bed Appearance: [place] Wound Bed Appearance: 100% pink shallow laceration to plantar surface of L great toe. Periwound is slightly discolored. Surrounding Tissue Temperature: Cool Drainage Amount: None Drainage Odor: No Odor Dressing Status: Changed Cleansing Solution: Saline Primary Dressing: Versatel one Cover Dressing: Gauze Pads Tape Type: Paper Wound Dressing Change Date: 12/28/17 Wound Margin Description: steep and even - Additional Information Patient seen on [facility] for wound management consult for L great toe, R lower leg and L wrist. Patient is s/p fall at home prior to admission.All wound measurements and other descriptions are noted above. Removed gauze dressing to L wrist to reveal four small skin tears in a linear pattern to L wrist area that are partial thickness.Cleansed skin tear to L wrist with normal saline.Approximated skin flap back over wounds and covered with Veratel one. Secured with gauze pads, rolled gauze and tape. Removed gauze and rolled gauze dressing in place to RLE to reveal clean laceration that has been well approximated with 29 sutures Scant sero- sanguinous drainage is noted to old dressing. Wound is not actively draining. Cleansed wound with normal saline and applied ABD pad. Secured dressing with rolled gauze and RICK wrap. Removed sock on L foot to reveal dry, shallow, laceration to L plantar surface of the great toe.Cleansed wound with normal saline and applied Versatel one in place and covered with dry 2x2 gauze secured with paper tape. Patient tolerated dressing changes well.
[2017-12-29] MEDS: Levothyroxine 100 MCG Tablet PO SCH (05:46)
[2017-12-29] MEDS: Ferrous Sulfate 325 MG Tablet PO SCH (08:15)
[2017-12-29] MEDS: Docusate Sodium 100 MG Capsule PO SCH (08:15)
[2017-12-29] MEDS: Insulin NovoLOG Aspart Correctional Sugar Inj SQ SCH ×2 (08:16→11:38)
[2017-12-29] MEDS: Nadolol 20 MG Tablet PO SCH (08:16)
[2017-12-29] MEDS: Furosemide 40 MG Tablet PO SCH (08:17)
[2017-12-29 09:25] VITALS: PULSE 74
[2017-12-29 09:38] VITALS: BP 108/53; RESP 18; TEMP 98.7; O2SAT 96
== END 2017-12-29 14:13 ==
LOC: NEPC 10:28 → NEDA 13:22 → N05 14:48
PROVIDERS: ADMIT Hospitalist; ATTEND Hospitalist
PROC: PANENDO (2017-12-27 12:10)